=== PATIENT | female | born 1960 | race American Indian/Alaskan Native ===

== ENCOUNTER 2018-06-03 11:45 | Inpatient (IN) | payer MEDICARE ==
--- NOTE | 2018-06-03 11:54 | Emergency Department Report ---
Blank Doc - Documentation Documentation: This is a 58-year-old female that presents from Dr. Guzman office for SOB and left leg pain with swelling. Also has HTN. This initial assessment/diagnostic orders/clinical plan/treatment(s) is/are subject to change based on patient's health status, clinical progression and re- assessment by fellow clinical providers in the ED. Further treatment and workup at subsequent clinical providers discretion. Patient/guardians urged not to elope from the ED as their condition may be serious if not clinically assessed and managed. Initial orders include: 1- Patient sent to [facility] ED for further evaluation and treatment 2- labs 3- doppler US 4- EKG 5- CXR
--- NOTE | 2018-06-03 12:50 | XRay Report ---
CHEST TWO VIEWS: 06/03/18 12:25 CLINICAL: Dyspnea. COMPARISON: None FINDINGS: Cardiomegaly and central vascular congestion. Mildly prominent the basal interstitial opacities on the frontal view. No pulmonary consolidation. No pleural effusion. The upper lung mondragon are clear. The bones and soft tissues are normal. No tubes or lines. IMPRESSION: Mild CHF with nonspecific bibasal interstitial opacities.
--- NOTE | 2018-06-03 12:55 | Emergency Department Report ---
ED Shortness of Breath HPI - General Chief Complaint: Dyspnea/Respdistress Stated Complaint: ZENON Time Seen by Provider: 06/03/18 12:41 Source: patient Mode of arrival: Ambulatory Limitations: No Limitations - History of Present Illness Initial Comments: Patient is a 58-year-old female that presents emergency room for shortness of breath. Patient states she saw her operating room orderly today and her operating room orderly recommends admission for IV diuretics and CHF exacerbation. Patient is complaining of shortness of breath, dyspnea on exertion, orthopnea and bilateral lower extremity edema. Patient states her shortness of breath is worse with exertion and laying flat and better with rest. Patient denies chest pain. Patient states she only has pressure in her lower extremities no pain. Patient's states her legs are worsening. Patient denies fever and chills. MD Complaint: shortness of breath -: Sudden Severity: severe Consistency: constant Improves With: oxygen, rest, upright position Worsens With: lying flat, exertion Known History Of: congestive heart failure Treatments Prior to Arrival: none - Related Data Home Oxygen Therapy: No Home Medications Medication Instructions Recorded Confirmed Last Taken Furosemide [Lasix] 80 mg PO DAILY 06/03/18 06/03/18 Unknown Insulin Aspart [NovoLOG Flexpen] 5 units SQ AC 06/03/18 06/03/18 Unknown Insulin Glargine,Hum.rec.anlog 10 units SQ QHS 06/03/18 06/03/18 Unknown [Lantus] Allergies Allergy/AdvReac Type Severity Reaction Status Date / Time Penicillins AdvReac Unknown Unverified 02/04/18 12:54 ED Review of Systems ROS: Stated complaint: ZENON Other details as noted in HPI Constitutional: denies: chills, fever Eyes: denies: eye pain, eye discharge, vision change ENT: denies: ear pain, throat pain Respiratory: orthopnea, shortness of breath, SOB with exertion, SOB at rest. denies: cough, wheezing Cardiovascular: edema. denies: chest pain, palpitations Endocrine: no symptoms reported Gastrointestinal: denies: abdominal pain, nausea, diarrhea Genitourinary: denies: urgency, dysuria, discharge Musculoskeletal: denies: back pain, joint swelling, arthralgia Skin: denies: rash, lesions Neurological: denies: headache, weakness, paresthesias Psychiatric: denies: anxiety, depression Hematological/Lymphatic: denies: easy bleeding, easy bruising ED Past Medical Hx - Past Medical History Previous Medical History?: Yes Hx Congestive Heart Failure: Yes Hx Diabetes: Yes - Surgical History Past Surgical History?: Yes Additional Surgical History: C section - Family History Family history: hypertension - Social History Smoking Status: Never Smoker Substance Use Type: Alcohol - Medications Home Medications: Home Medications Medication Instructions Recorded Confirmed Last Taken Type Furosemide [Lasix] 80 mg PO DAILY 06/03/18 06/03/18 Unknown History Insulin Aspart [NovoLOG Flexpen] 5 units SQ AC 06/03/18 06/03/18 Unknown History Insulin Glargine,Hum.rec.anlog 10 units SQ QHS 06/03/18 06/03/18 Unknown History [Lantus] ED Physical Exam - General Limitations: No Limitations General appearance: alert, in no apparent distress - Head Head exam: Present: atraumatic, normocephalic - Eye Eye exam: Present: normal appearance - ENT ENT exam: Present: mucous membranes moist - Neck Neck exam: Present: normal inspection - Respiratory Respiratory exam: Present: normal lung sounds bilaterally. Absent: respiratory distress - Cardiovascular Cardiovascular Exam: Present: regular rate, normal rhythm. Absent: systolic murmur, diastolic murmur, rubs, gallop - GI/Abdominal GI/Abdominal exam: Present: soft, normal bowel sounds - Extremities Exam Extremities exam: Present: normal inspection - Back Exam Back exam: Present: normal inspection - Neurological Exam Neurological exam: Present: alert, oriented X3 - Psychiatric Psychiatric exam: Present: normal affect, normal mood - Skin Skin exam: Present: warm, dry, intact, normal color. Absent: rash ED Course Vital Signs 06/03/18 06/03/18 06/03/18 11:52 13:44 14:20 Temperature 97.9 F Pulse Rate 104 H 92 H Respiratory 20 18 16 Rate Blood Pressure 153/93 O2 Sat by Pulse 96 99 96 Oximetry - Reevaluation(s) Reevaluation #1: Discussed all results with patient. Patient agrees with plan of care and admission. Patient will be admitted to the hospitalist service. 06/03/18 14:12 - Consultations Consultation #1: Hospitalist consulted. Hospitalist to admit patient and assume care of patient. 06/03/18 14:01 Consultation #2: Cardiology consulted. Etiology to see the patient. Report given to Noemí Galdamez 06/03/18 14:33 ED Medical Decision Making - Lab Data Result diagrams: 06/03/18 Unknown 06/03/18 Unknown - EKG Data -: EKG Interpreted by Me EKG shows normal: sinus rhythm, axis, intervals, QRS complexes, ST-T waves Rate: normal - Radiology Data Radiology results: report reviewed, image reviewed CHEST TWO VIEWS: 06/03/18 12:25 CLINICAL: Dyspnea. COMPARISON: None FINDINGS: Cardiomegaly and central vascular congestion. Mildly prominent the basal interstitial opacities on the frontal view. No pulmonary consolidation. No pleural effusion. The upper lung mondragon are clear. The bones and soft tissues are normal. No tubes or lines. IMPRESSION: Mild CHF with nonspecific bibasal interstitial opacities. PROCEDURE: VL VENOUS DUPLEX LE LT TECHNIQUE: Ultrasound of the left leg venous system HISTORY: left leg pain and swelling COMPARISONS: 02/04/2018 FINDINGS: Normal compressibility, vascular patency, and augmentation are present diffusely throughout the visualized portion of the deep veins. No abnormal intraluminal echoes are visualized to suggest deep vein thrombus. Small nonspecific nodule in left inguinal region may be a prominent lymph node. IMPRESSION: No sonographic evidence of left leg DVT - Medical Decision Making History this 8-year-old female that presents to [facility] with shortness of breath, dyspnea on exertion and leg edema. Patient had ultrasound which is negative for DVT. Patient sent here by her operating room orderly for admission and IV diuresis. Patient given Lasix in the ER.. Patient was admitted to the hospitalist service. Patient agrees with plan of care. Patient's chest x-ray shows CHF changes. BNP is elevated labs are unremarkable Except for electrolyte imbalances. - Differential Diagnosis CHF. CHF exacerbation. Shortness of breath. THOMPSON. Edema Critical Care Time: Yes Critical care attestation.: If time is entered above; I have spent that time in minutes in the direct care of this critically ill patient, excluding procedure time. Critical Care Time: 35 minutes ED Disposition Clinical Impression: SOB (shortness of breath), THOMPSON (dyspnea on exertion), Lower extremity edema, Hyponatremia Edema Qualifiers: Edema type: unspecified Qualified Code(s): R60.9 - Edema, unspecified Acute exacerbation of CHF (congestive heart failure) Qualifiers: Heart failure type: systolic Qualified Code(s): I50.23 - Acute on chronic systolic (congestive) heart failure Disposition: DC-09 OP ADMIT IP TO THIS HOSP Is pt being admited?: Yes Does the pt Need Aspirin: No Condition: Critical Time of Disposition: 14:14
[2018-06-03] MEDS ORDERED: LASIX IV ONE (13:06)
[2018-06-03 13:29] LABS: Hematocrit 35.2 % (30.3-42.9); Hemoglobin 11.7 gm/dl (10.1-14.3); Mean Corpuscular HGB Conc 33 % (30-34); Mean Corpuscular Volume 83 fl (79-97); Platelet Count 288 K/mm3 (140-440); Red Blood Count 4.26 M/mm3 (3.65-5.03); Red Cell Distribution Width 17.4 % (13.2-15.2)
[2018-06-03 13:36] LABS: INR 1.05 (0.87-1.13)
[2018-06-03 13:37] LABS: Partial Thromboplastin Time 27.1 Sec. (24.2-36.6)
--- NOTE | 2018-06-03 13:38 | Vascular Lab Report ---
PROCEDURE: VL VENOUS DUPLEX LE LT TECHNIQUE: Ultrasound of the left leg venous system HISTORY: left leg pain and swelling COMPARISONS: 02/04/2018 FINDINGS: Normal compressibility, vascular patency, and augmentation are present diffusely throughout the visualized portion of the deep veins. No abnormal intraluminal echoes are visualized to suggest deep vein thrombus. Small nonspecific nodule in left inguinal region may be a prominent lymph node. IMPRESSION: No sonographic evidence of left leg DVT This document is electronically signed by Nash Purcell MD., June 03 2018 01:36:16 PM ET
[2018-06-03 13:45] LABS: Creatine Kinase MB 2.2 ng/mL (0.0-4.0)
[2018-06-03 13:47] LABS: Albumin 3.3 g/dL (3.9-5); BUN/Creatinine Ratio 20; Blood Urea Nitrogen 20 mg/dL (7-17); Calcium 8.6 mg/dL (8.4-10.2); Hemolysis Index 157
--- NOTE | 2018-06-03 14:06 | History and Physical Report ---
History of Present Illness Chief complaint: Im short of breath, and my legs are really swollen, and my heart doctor tole me to come get checked out History of present illness: 58 YO Female with Obesity, CHF, DM, Systolic CHF (EF 20%) presents to ED for evaluation. Pt stats that she has experienced shortness of breath over the past 1 week, with progressively worsening symptoms over the same time frame. Pt acknowledges Orthopnea/PND, Dypsnea on exertion, decreased exercise tolerance, lower extremity edema, dypsnea at rest. Pt was seen by her automobile or truck rental dispatcher and instructed to seek further care at [facility]. Pt transported to [facility] via private vehicle. Pt seen and evaluated in ED and found to have symptoms consistent with CHF Decompensation. Pt admitted to telemetry and initiated on CHF protocol. Cardiology consulted in ED. Pt denies fever, chills, CP, Palpitations, NVD, Trauma, Skin rash, Vertigo, unintentional weight loss, prolonged travel/immobility, unilateral leg swelling, individual/family history of DVT/PE/Blood Clotting Disorder. No previous inpatient admissions. No medication available for reconciliation at time of admission. Past History Past Medical History: diabetes, heart failure, other (Obesity) Past Surgical History: Social history: single. denies: smoking, alcohol abuse, prescription drug abuse Family history: diabetes, hypertension Medications and Allergies Allergies Allergy/AdvReac Type Severity Reaction Status Date / Time Penicillins AdvReac Unknown Unverified 02/04/18 12:54 Review of Systems Constitutional: weight gain, no weight loss, no fever, no chills Ears, nose, mouth and throat: no ear pain, no ear discharge, no tinnitis, no decreased hearing, no nose pain Breasts: no change in shape, no swelling, no mass Cardiovascular: orthopnea, edema, shortness of breath, dyspnea on exertion, paroxysmal nocturnal dyspnea, leg edema, decreased exercise tolerance, no chest pain, no palpitations, no rapid/irregular heart beat, no syncope Respiratory: no cough, no cough with sputum, no excessive sputum, no hemoptysis Gastrointestinal: no nausea, no vomiting, no diarrhea, no constipation Genitourinary Female: no pelvic pain, no flank pain, no menorrhagia, no dysuria, no urinary frequency, no urgency Rectal: no pain, no incontinence, no bleeding Musculoskeletal: no neck pain, no shooting arm pain, no arm numbness/tingling, no low back pain, no shooting leg pain Integumentary: no rash, no pruritis, no redness, no sores, no wounds Neurological: no paralysis, no weakness, no parathesias, no numbness, no tingling, no seizures Psychiatric: no anxiety, no memory loss, no change in sleep habits, no sleep disturbances, no insomnia, no hypersomnia, no change in appetite Endocrine: no cold intolerance, no heat intolerance, no polyphagia, no excessive thirst, no polydipsia, no polyuria Hematologic/Lymphatic: no easy bruising, no easy bleeding Allergic/Immunologic: no urticaria, no allergic rhinitis, no wheezing Exam - Constitutional Vitals: Temp Pulse Resp BP Pulse Ox 97.9 F 104 H 18 153/93 99 06/03/18 11:52 06/03/18 11:52 06/03/18 13:44 06/03/18 11:52 06/03/18 13:44 General appearance: Present: mild distress, obese - EENT Eyes: Present: PERRL ENT: hearing intact, clear oral mucosa - Neck Neck: Present: supple, normal ROM - Respiratory Respiratory effort: normal Respiratory: bilateral: diminished, rhonchi - Cardiovascular Heart Sounds: Present: S1 & S2. Absent: rub, click - Extremities Extremity abnormal: edema Peripheral Pulses: within normal limits - Abdominal General gastrointestinal: Present: soft, non-tender, non-distended, normal bowel sounds Female genitourinary: Present: normal - Integumentary Integumentary: Present: clear, warm, dry - Musculoskeletal Musculoskeletal: gait normal, strength equal bilaterally - Psychiatric Psychiatric: appropriate mood/affect, intact judgment & insight - Neurologic Neurologic: CNII-XII intact, moves all extremities Results - Labs CBC & Chem 7: 06/03/18 Unknown 06/03/18 Unknown Labs: Abnormal lab results 06/03/18 06/03/18 06/03/18 Range/Units Unknown Unknown Unknown WBC 3.4 L (4.5-11.0) K/mm3 RDW 17.4 H (13.2-15.2) % Sodium 132 L (137-145) mmol/L Chloride 93.2 L (98-107) mmol/L BUN 20 H (7-17) mg/dL Glucose 390 H (65-100) mg/dL Alkaline Phosphatase 190 H (35-129) units/L NT-Pro-B Natriuret Pep 7405 H (0-900) pg/mL Albumin 3.3 L (3.9-5) g/dL Assessment and Plan - Patient Problems (1) Acute exacerbation of CHF (congestive heart failure) Current Visit: Yes Status: Acute Qualifiers: Heart failure type: systolic Qualified Code(s): I50.23 - Acute on chronic systolic (congestive) heart failure Plan to address problem: CHF Protocol: Admit to Telemetry, Strict I/O, daily weight, diuresis, afterload reduction, Echo ordered in ED pending results, cardiology consulted in ED, BNP, CTA angio chest, pulse oximetry, chest x ray, thyroid panel. (2) Diabetes Current Visit: Yes Status: Acute Plan to address problem: ADA diet, insulin, accu check, (3) Obesity hypoventilation syndrome Current Visit: Yes Status: Acute Plan to address problem: supplemental oxygen, neblizer therpay, NIPPV as clinically indicated, increased physical activity, balanced diet at discharge. (4) DVT prophylaxis Current Visit: Yes Status: Acute Plan to address problem: SCD to BLE while in bed, prophylactic lovenox
[2018-06-03] MEDS ORDERED: ZOFRAN IV PRN (14:30)
[2018-06-03] MEDS ORDERED: TYLENOL PO PRN (14:30)
[2018-06-03] MEDS ORDERED: SODIUM CHLORIDE FLUSH SYRINGE 10 ML IV PRN (14:30)
[2018-06-03] MEDS ORDERED: PROVENTIL IH PRN (14:30)
[2018-06-03 14:42] LABS: Alanine Aminotransferase 23 units/L (7-56)
[2018-06-03 14:47] LABS: Eosinophils % (Manual) 0 % (0.0-4.3); Total Cells Counted 100
[2018-06-03 14:55] LABS: Anisocytosis 1+; Ovalocytes Rare; Platelet Estimate Consistent w Auto; Poikilocytosis 1+; Target Cells 1+
[2018-06-03 15:14] LABS: Bacteria,Urine 1+ /HPF (Negative); Bilirubin,Urine NEG (Negative); Blood,Urine NEG (Negative); Color,Urine Straw (Yellow); Urobilinogen,Urine < 2.0 mg/dL (<2.0)
--- NOTE | 2018-06-03 15:35 | Consultation ---
History of Present Illness Consult date: 06/03/18 Requesting physician: BUBBA RAMIRES Consult reason: congestive heart failure History of present illness: The pt is a 58-year-old female with past medical history of dilated CMP, HTN, DM, HF, who is normally followed by Dr. Fields office who presented today to our office for EP consultation with Dr. Guzman to discuss primary prevention of sudden cardiac . Today in the office the patient c/o of paroxysmal nocturnal dyspnea, orthopnea, SOB, THOMPSON and significant lower extremity edema for the past 2-3 weeks. Pt was referred to [facility] ED for further eval/management of acute on chronic systolic heart failure. Pt admits that she stopped taking prescription medications about 2 months ago because the medications made her feel "old", tired and sleepy. Pt denies any additional complaints. Echo done 01/2018 showed EF 20-25%, dilated LA, grade 3 diastolic dysfunction, RVSP 45-50mmHg, mild MR, AK and TR. Lexiscan MPI stress test done 10/2017 was negative for ischemia, EF 36%. Past History Past Medical History: diabetes, heart failure, hypertension, other (Obesity) Past Surgical History: Social history: single. denies: smoking, alcohol abuse, prescription drug abuse Family history: diabetes, hypertension Medications and Allergies Allergies Allergy/AdvReac Type Severity Reaction Status Date / Time Penicillins AdvReac Unknown Unverified 02/04/18 12:54 Home Medications Medication Instructions Recorded Confirmed Last Taken Type Furosemide [Lasix] 80 mg PO DAILY 06/03/18 06/03/18 Unknown History Insulin Aspart [NovoLOG Flexpen] 5 units SQ AC 06/03/18 06/03/18 Unknown History Insulin Glargine,Hum.rec.anlog 10 units SQ QHS 06/03/18 06/03/18 Unknown History [Lantus] Active Meds: Active Medications Acetaminophen (Tylenol) 650 mg PO Q4H PRN PRN Reason: Pain MILD(1-3)/Fever >100.5/GALLEGOS Albuterol (Proventil) 2.5 mg IH Q4HRT PRN PRN Reason: Shortness Of Breath Enoxaparin Sodium (Lovenox) 40 mg SUB-Q QDAY@2200 FLIP Furosemide (Lasix) 20 mg IV BID@0600,1800 FLIP Ondansetron HCl (Zofran) 4 mg IV Q8H PRN PRN Reason: Nausea And Vomiting Sodium Chloride (Sodium Chloride Flush Syringe 10 Ml) 10 ml IV BID FLIP Sodium Chloride (Sodium Chloride Flush Syringe 10 Ml) 10 ml IV PRN PRN PRN Reason: LINE FLUSH Review of Systems Constitutional: no fever, no chills, no sweats Ears, nose, mouth and throat: no ear pain, no nose pain, no sinus pressure, no sinus pain Cardiovascular: orthopnea, edema, shortness of breath, dyspnea on exertion, paroxysmal nocturnal dyspnea, high blood pressure, leg edema, decreased exercise tolerance, no chest pain, no palpitations, no rapid/irregular heart beat, no syncope, no lightheadedness Respiratory: shortness of breath, dyspnea on exertion, no cough, no congestion, no wheezing, no pain on inspiration Gastrointestinal: no abdominal pain, no nausea, no vomiting, no diarrhea, no constipation, no change in bowel habits Genitourinary Female: no pelvic pain, no flank pain, no dysuria, no urinary frequency, no urgency Musculoskeletal: no neck stiffness, no neck pain, no shooting arm pain, no arm numbness/tingling, no low back pain, no shooting leg pain Integumentary: no rash, no pruritis, no redness, no sores, no wounds Neurological: no head injury, no paralysis, no weakness, no parathesias, no numbness, no tingling, no seizures, no syncope Psychiatric: no anxiety Endocrine: no cold intolerance, no heat intolerance Hematologic/Lymphatic: no easy bruising, no easy bleeding Allergic/Immunologic: no urticaria, no wheezing Physical Examination Vital Signs Temp Pulse Resp BP Pulse Ox 97.9 F 104 H 20 153/93 96 06/03/18 11:52 06/03/18 11:52 06/03/18 11:52 06/03/18 11:52 06/03/18 11:52 General appearance: no acute distress HEENT: Positive: PERRL, Normocephaly, Mucus Membranes Moist Neck: Positive: neck supple, trachea midline Cardiac: Positive: Regular Rhythm, S1/S2 Lungs: Positive: Rales Neuro: Positive: Grossly Intact Abdomen: Negative: Tender Skin: Negative: Rash Musculoskeletal: No Pain Extremities: Present: +2 Edema (BLE) Results 06/03/18 Unknown 06/03/18 Unknown Cardiac Enzymes 06/03/18 Range/Units Unknown AST 33 (5-40) units/L CK-MB (CK-2) 2.2 (0.0-4.0) ng/mL Coagulation 06/03/18 Range/Units Unknown PT 14.3 (12.2-14.9) Sec. INR 1.05 (0.87-1.13) APTT 27.1 (24.2-36.6) Sec. CBC 06/03/18 Range/Units Unknown WBC 3.4 L (4.5-11.0) K/mm3 RBC 4.26 (3.65-5.03) M/mm3 Hgb 11.7 (10.1-14.3) gm/dl Hct 35.2 (30.3-42.9) % Plt Count 288 (140-440) K/mm3 Comprehensive Metabolic Panel 06/03/18 Range/Units Unknown Sodium 132 L (137-145) mmol/L Potassium 4.6 (3.6-5.0) mmol/L Chloride 93.2 L (98-107) mmol/L Carbon Dioxide 27 (22-30) mmol/L BUN 20 H (7-17) mg/dL Creatinine 1.0 (0.7-1.2) mg/dL Glucose 390 H (65-100) mg/dL Calcium 8.6 (8.4-10.2) mg/dL AST 33 (5-40) units/L ALT 23 (7-56) units/L Alkaline Phosphatase 190 H (35-129) units/L Total Protein 7.4 (6.3-8.2) g/dL Albumin 3.3 L (3.9-5) g/dL - Imaging and Cardiology Echo: report reviewed (01/2018 showed EF 20-25%, dilated LA, grade 3 diastolic dysfunction, RVSP 45-50mmHg, mild MR, AK and TR. ) EKG: report reviewed, image reviewed EKG interpretations - Telemetry EKG Rhythm: Sinus Rhythm - EKG Sinus rhythms and dysrhythmias: sinus rhythm Assessment and Plan DDimer elevated - await chest CTA. Resume home losartan and initiate IV diuretics. Consider resuming home Toprol if BP and HR permit and if pt is agreeable - Pt stopped taking prescription medications about 2 months ago because the medications made her feel "old", tired and sleepy. The patient has been seen in conjunction with Dr. Laughlin who agrees with the assessment and plan of care. - Patient Problems (1) Acute on chronic HFrEF (heart failure with reduced ejection fraction) Current Visit: Yes Status: Acute (2) Dilated cardiomyopathy Current Visit: Yes Status: Chronic (3) Elevated d-dimer Current Visit: Yes Status: Acute (4) HTN (hypertension) Current Visit: Yes Status: Chronic (5) Diabetes Current Visit: Yes Status: Chronic (6) Medical non-compliance Current Visit: Yes Status: Chronic
[2018-06-03 15:57] LABS: Free T4 (Free Thyroxine) 1.36 ng/dL (0.76-1.46)
--- NOTE | 2018-06-03 17:21 | Cat Scan Report ---
PROCEDURE: CT angiogram chest with contrast. TECHNIQUE: Computerized tomographic angiography of the chest was performed after the IV injection of iodinated nonionic contrast including image processing. The image data was postprocessed using 2-di mensional multiplanar reformatted (MPR) and 3-dimensional (MIP and/or volume rendered) techniques. Au tomated exposure control, adjustment of mA and/or kV according to patient size, or iterative reconstr uction dose optimization techniques were utilized. CT DOSE LENGTH PRODUCT: 486.97 mGycm HISTORY: Dyspnea. COMPARISONS: None. FINDINGS: The trachea and central bronchi appear normal. The right lung is clear. There is some groundglass opa [place] in the left lower lobe. This is nonspecific. It could represent atypical pulmonary edema or kaushal y pneumonia. There is a tiny left pleural effusion. The thoracic aorta has a normal caliber. The pulm onary arteries enhance normally. There is no evidence of pulmonary embolism. There are a few small no nspecific mediastinal lymph nodes. The heart size is mildly enlarged. The adrenal glands are not enla rged. The thoracic skeleton appears intact. IMPRESSION: No evidence of pulmonary embolism. Nonspecific groundglass opacity in the left lower lob e. Tiny left pleural effusion. This document is electronically signed by Ori Rico MD., June 03 2018 05:18:14 PM ET
[2018-06-03] MEDS ORDERED: LASIX IV SCH (18:00)
[2018-06-03] MEDS ORDERED: LASIX ONE (18:05)
[2018-06-03] MEDS: LASIX IV SCH (18:07)
[2018-06-03] MEDS: ALDACTONE PO SCH (22:55)
[2018-06-03] MEDS: LOVENOX SUB-Q SCH (22:55)
[2018-06-03] MEDS: SODIUM CHLORIDE FLUSH SYRINGE 10 ML IV SCH (22:55)
[2018-06-04] MEDS: LASIX IV SCH ×2 (06:19→17:10)
[2018-06-04] MEDS: HumuLIN R SUB-Q SCH ×4 (07:33→22:36)
[2018-06-04] MEDS: COZAAR PO SCH (10:23)
[2018-06-04] MEDS: ALDACTONE PO SCH (10:23)
[2018-06-04] MEDS: SODIUM CHLORIDE FLUSH SYRINGE 10 ML IV SCH ×2 (10:24→22:39)
--- NOTE | 2018-06-04 11:14 | Progress Note ---
Assessment and Plan DDimer elevated - chest CTA negative for PE. Initiate low dose coreg and titrate as tolerated. Cont all other present cardiac management. Assessment and plan reviewed with pt at bedside and she is agreeable. The patient has been seen in conjunction with Dr. Laughlin who agrees with the assessment and plan of care. - Patient Problems (1) Acute on chronic HFrEF (heart failure with reduced ejection fraction) Current Visit: Yes Status: Acute (2) Dilated cardiomyopathy Current Visit: Yes Status: Chronic (3) Elevated d-dimer Current Visit: Yes Status: Acute (4) HTN (hypertension) Current Visit: Yes Status: Chronic (5) Diabetes Current Visit: Yes Status: Chronic (6) Medical non-compliance Current Visit: Yes Status: Chronic (7) NSVT (nonsustained ventricular tachycardia) Current Visit: Yes Status: Acute Subjective Date of service: 06/04/18 Principal diagnosis: hf Interval history: pt resting in bed, states she is feeling better today. in SR on tele with 6 beat NSVT noted overnight, pt asymptomatic. Objective Last Vital Signs Temp 98.2 F 06/04/18 08:25 Pulse 93 H 06/04/18 08:24 Resp 18 06/04/18 08:24 BP 147/82 06/04/18 08:24 Pulse Ox 95 06/04/18 08:24 - Physical Examination General: No Apparent Distress HEENT: Positive: PERRL, Normocephaly, Mucus Membranes Moist Neck: Positive: neck supple, trachea midline Cardiac: Positive: Reg Rate and Rhythm, S1/S2 Lungs: Positive: Decreased Breath Sounds Neuro: Positive: Grossly Intact Abdomen: Negative: Tender Skin: Negative: Rash Musculoskeletal: No Pain Extremities: Present: +2 Edema (BLE) - Labs and Meds Cardiac Enzymes 06/03/18 Range/Units Unknown AST 33 (5-40) units/L CK-MB (CK-2) 2.2 (0.0-4.0) ng/mL Coagulation 06/03/18 Range/Units Unknown PT 14.3 (12.2-14.9) Sec. INR 1.05 (0.87-1.13) APTT 27.1 (24.2-36.6) Sec. CBC 06/03/18 Range/Units Unknown WBC 3.4 L (4.5-11.0) K/mm3 RBC 4.26 (3.65-5.03) M/mm3 Hgb 11.7 (10.1-14.3) gm/dl Hct 35.2 (30.3-42.9) % Plt Count 288 (140-440) K/mm3 Comprehensive Metabolic Panel 06/03/18 Range/Units Unknown Sodium 132 L (137-145) mmol/L Potassium 4.6 (3.6-5.0) mmol/L Chloride 93.2 L (98-107) mmol/L Carbon Dioxide 27 (22-30) mmol/L BUN 20 H (7-17) mg/dL Creatinine 1.0 (0.7-1.2) mg/dL Glucose 390 H (65-100) mg/dL Calcium 8.6 (8.4-10.2) mg/dL AST 33 (5-40) units/L ALT 23 (7-56) units/L Alkaline Phosphatase 190 H (35-129) units/L Total Protein 7.4 (6.3-8.2) g/dL Albumin 3.3 L (3.9-5) g/dL - Imaging and Cardiology EKG: report reviewed, image reviewed Echo: report reviewed (01/2018 showed EF 20-25%, dilated LA, grade 3 diastolic dysfunction, RVSP 45-50mmHg, mild MR, [place] and TR. ) - EKG Sinus rhythms and dysrhythmias: sinus rhythm
[2018-06-04] MEDS: COREG PO SCH ×2 (13:37→22:36)
--- NOTE | 2018-06-04 14:34 | Progress Note ---
Assessment and Plan Assessment and plan: Acute on chronic HFrEF. Echocardiogram from January 2018 revealed EF 20-25%, dilated LA, grade 3 diastolic dysfunction, RVSP 45-50mmHg, mild MR, [place] and TR. Continue Coreg, Lasix, Cozaar and spironolactone. Cardiology following. Follow serial chest x-ray. Lexiscan MPI stress test done 10/2017 was negative for ischemia, EF 36%. Dilated cardiomyopathy. Per cardiology. Elevated d-dimer. CT of chest negative for PE. Hypertension. Continue antihypertensive medications. Diabetes mellitus type 2. Continue Accu-Cheks and sliding scale regular insulin. NSVT. Patient likely will have AICD placed per cardiology. OHS/GAYLA. BiPAP as clinically indicated. History Interval history: No new issues overnight. Hospitalist Physical - Constitutional Vitals: Temp Pulse Resp BP Pulse Ox 98.1 F 100 H 18 149/82 96 06/04/18 11:00 06/04/18 12:15 06/04/18 12:15 06/04/18 12:15 06/04/18 12:54 General appearance: Present: no acute distress - EENT Eyes: Present: PERRL, EOM intact ENT: hearing intact, clear oral mucosa, dentition normal - Neck Neck: Present: supple, normal ROM - Respiratory Respiratory effort: normal Respiratory: bilateral: CTA - Cardiovascular Rhythm: regular Heart Sounds: Present: S1 & S2. Absent: gallop, rub - Extremities Extremities: no ischemia, No edema, Full ROM - Abdominal General gastrointestinal: soft, non-tender, non-distended, normal bowel sounds - Integumentary Integumentary: Present: clear, warm, dry - Neurologic Neurologic: CNII-XII intact, moves all extremities Results - Labs CBC & Chem 7: 06/03/18 Unknown 06/03/18 Unknown Labs: Laboratory Last Values WBC 3.4 K/mm3 (4.5-11.0) L 06/03/18 Unknown RBC 4.26 M/mm3 (3.65-5.03) 06/03/18 Unknown Hgb 11.7 gm/dl (10.1-14.3) 06/03/18 Unknown Hct 35.2 % (30.3-42.9) 06/03/18 Unknown MCV 83 fl (79-97) 06/03/18 Unknown MCH 28 pg (28-32) 06/03/18 Unknown MCHC 33 % (30-34) 06/03/18 Unknown RDW 17.4 % (13.2-15.2) H 06/03/18 Unknown Plt Count 288 K/mm3 (140-440) 06/03/18 Unknown Add Manual Diff Complete 06/03/18 Unknown Total Counted 100 06/03/18 Unknown Seg Neuts % (Manual) 59.0 % (40.0-70.0) 06/03/18 Unknown Band Neutrophils % 0 % 06/03/18 Unknown Lymphocytes % (Manual) 30.0 % (13.4-35.0) 06/03/18 Unknown Reactive Lymphs % (Man) 0 % 06/03/18 Unknown Monocytes % (Manual) 10.0 % (0.0-7.3) H 06/03/18 Unknown Eosinophils % (Manual) 0 % (0.0-4.3) 06/03/18 Unknown Basophils % (Manual) 1.0 % (0.0-1.8) 06/03/18 Unknown Metamyelocytes % 0 % 06/03/18 Unknown Myelocytes % 0 % 06/03/18 Unknown Promyelocytes % 0 % 06/03/18 Unknown Blast Cells % 0 % 06/03/18 Unknown Nucleated RBC % Not Reportable 06/03/18 Unknown Seg Neutrophils # Man 2.0 K/mm3 (1.8-7.7) 06/03/18 Unknown Band Neutrophils # 0.0 K/mm3 06/03/18 Unknown Lymphocytes # (Manual) 1.0 K/mm3 (1.2-5.4) L 06/03/18 Unknown Abs React Lymphs (Man) 0.0 K/mm3 06/03/18 Unknown Monocytes # (Manual) 0.3 K/mm3 (0.0-0.8) 06/03/18 Unknown Eosinophils # (Manual) 0.0 K/mm3 (0.0-0.4) 06/03/18 Unknown Basophils # (Manual) 0.0 K/mm3 (0.0-0.1) 06/03/18 Unknown Metamyelocytes # 0.0 K/mm3 06/03/18 Unknown Myelocytes # 0.0 K/mm3 06/03/18 Unknown Promyelocytes # 0.0 K/mm3 06/03/18 Unknown Blast Cells # 0.0 K/mm3 06/03/18 Unknown WBC Morphology Not Reportable 06/03/18 Unknown Hypersegmented Neuts Not Reportable 06/03/18 Unknown Hyposegmented Neuts Not Reportable 06/03/18 Unknown Hypogranular Neuts Not Reportable 06/03/18 Unknown Smudge Cells Not Reportable 06/03/18 Unknown Toxic Granulation Not Reportable 06/03/18 Unknown Toxic Vacuolation Not Reportable 06/03/18 Unknown Dohle Bodies Not Reportable 06/03/18 Unknown Pelger-Huet Anomaly Not Reportable 06/03/18 Unknown Beatriz Rods Not Reportable 06/03/18 Unknown Platelet Estimate Consistent w auto 06/03/18 Unknown Clumped Platelets Not Reportable 06/03/18 Unknown Plt Clumps, EDTA Not Reportable 06/03/18 Unknown Large Platelets Not Reportable 06/03/18 Unknown Giant Platelets Not Reportable 06/03/18 Unknown Platelet Satelliting Not Reportable 06/03/18 Unknown Plt Morphology Comment Not Reportable 06/03/18 Unknown RBC Morphology Not Reportable 06/03/18 Unknown Dimorphic RBCs Not Reportable 06/03/18 Unknown Polychromasia Not Reportable 06/03/18 Unknown Hypochromasia Not Reportable 06/03/18 Unknown Poikilocytosis 1+ 06/03/18 Unknown Anisocytosis 1+ 06/03/18 Unknown Microcytosis Not Reportable 06/03/18 Unknown Macrocytosis Not Reportable 06/03/18 Unknown Spherocytes Not Reportable 06/03/18 Unknown Pappenheimer Bodies Not Reportable 06/03/18 Unknown Sickle Cells Not Reportable 06/03/18 Unknown Target Cells 1+ 06/03/18 Unknown Tear Drop Cells Not Reportable 06/03/18 Unknown Ovalocytes Rare 06/03/18 Unknown Helmet Cells Not Reportable 06/03/18 Unknown Fernán[place] Bodies Not Reportable 06/03/18 Unknown [place] Rings Not Reportable 06/03/18 Unknown [place] Cells Not Reportable 06/03/18 Unknown Bite Cells Not Reportable 06/03/18 Unknown Crenated Cell Not Reportable 06/03/18 Unknown Elliptocytes Not Reportable 06/03/18 Unknown Acanthocytes (Spur) Not Reportable 06/03/18 Unknown Rouleaux Not Reportable 06/03/18 Unknown Hemoglobin C Crystals Not Reportable 06/03/18 Unknown Schistocytes Not Reportable 06/03/18 Unknown Malaria parasites Not Reportable 06/03/18 Unknown Patrick Bodies Not Reportable 06/03/18 Unknown Hem Pathologist Commnt No 06/03/18 Unknown PT 14.3 Sec. (12.2-14.9) 06/03/18 Unknown INR 1.05 (0.87-1.13) 06/03/18 Unknown APTT 27.1 Sec. (24.2-36.6) 06/03/18 Unknown D-Dimer 1025.63 ng/mlDDU (0-234) H 06/03/18 14:15 Sodium 132 mmol/L (137-145) L 06/03/18 Unknown Potassium 4.6 mmol/L (3.6-5.0) 06/03/18 Unknown Chloride 93.2 mmol/L (98-107) L 06/03/18 Unknown Carbon Dioxide 27 mmol/L (22-30) 06/03/18 Unknown Anion Gap 16 mmol/L 06/03/18 Unknown BUN 20 mg/dL (7-17) H 06/03/18 Unknown Creatinine 1.0 mg/dL (0.7-1.2) 06/03/18 Unknown Estimated GFR > 60 ml/min 06/03/18 Unknown BUN/Creatinine Ratio 20 % 06/03/18 Unknown Glucose 390 mg/dL (65-100) H 06/03/18 Unknown POC Glucose 97 (70-105) 06/04/18 11:41 Calcium 8.6 mg/dL (8.4-10.2) 06/03/18 Unknown Total Bilirubin 0.70 mg/dL (0.1-1.2) 06/03/18 Unknown AST 33 units/L (5-40) 06/03/18 Unknown ALT 23 units/L (7-56) 06/03/18 Unknown Alkaline Phosphatase 190 units/L (35-129) H 06/03/18 Unknown Total Creatine Kinase 76 units/L (30-135) 06/03/18 Unknown CK-MB (CK-2) 2.2 ng/mL (0.0-4.0) 06/03/18 Unknown CK-MB (CK-2) Rel Index 2.8 (0-4) 06/03/18 Unknown Troponin T < 0.010 ng/mL (0.00-0.029) 06/03/18 Unknown NT-Pro-B Natriuret Pep 7405 pg/mL (0-900) H 06/03/18 13:19 Total Protein 7.4 g/dL (6.3-8.2) 06/03/18 Unknown Albumin 3.3 g/dL (3.9-5) L 06/03/18 Unknown Albumin/Globulin Ratio 0.8 % 06/03/18 Unknown TSH 2.580 mlU/mL (0.270-4.200) 06/03/18 15:09 Free T4 1.36 ng/dL (0.76-1.46) 06/03/18 15:09 Urine Color Straw (Yellow) 06/03/18 14:05 Urine Turbidity Clear (Clear) 06/03/18 14:05 Urine pH 7.0 (5.0-7.0) 06/03/18 14:05 Ur Specific [place] 1.009 (1.003-1.030) 06/03/18 14:05 Urine Protein 100 mg/dl mg/dL (Negative) 06/03/18 14:05 Urine Glucose (UA) >=500 mg/dL (Negative) 06/03/18 14:05 Urine Ketones Neg mg/dL (Negative) 06/03/18 14:05 Urine Blood Neg (Negative) 06/03/18 14:05 Urine Nitrite Neg (Negative) 06/03/18 14:05 Urine Bilirubin Neg (Negative) 06/03/18 14:05 Urine Urobilinogen < 2.0 mg/dL (<2.0) 06/03/18 14:05 Ur Leukocyte Esterase Tr (Negative) 06/03/18 14:05 Urine WBC (Auto) 1.0 /HPF (0.0-6.0) 06/03/18 14:05 Urine RBC (Auto) 4.0 /HPF (0.0-6.0) 06/03/18 14:05 U Epithel Cells (Auto) 2.0 /HPF (0-13.0) 06/03/18 14:05 Urine Bacteria (Auto) 1+ /HPF (Negative) 06/03/18 14:05 Active Medications - Current Medications Current Medications: Generic Name Dose Route Start Last Admin Trade Name Freq PRN Reason Stop Dose Admin Acetaminophen 650 mg 06/03/18 14:30 Tylenol PO Q4H PRN Pain MILD(1-3)/Fever >100.5/GALLEGOS Albuterol 2.5 mg 06/03/18 14:30 Proventil IH Q4HRT PRN Shortness Of Breath Carvedilol 6.25 mg 06/04/18 12:00 06/04/18 13:37 Coreg PO 6.25 mg BID FLIP Administration Enoxaparin Sodium 40 mg 06/03/18 22:00 06/03/18 22:55 Lovenox SUB-Q 40 mg QDAY@2200 FLIP Administration Furosemide 40 mg 06/03/18 18:00 06/04/18 06:19 Lasix IV 40 mg BID@0600,1800 [facility] Administration Insulin Human Regular 0 units 06/04/18 07:30 06/04/18 12:41 Humulin R SUB-Q Not Given ACHS [facility] Protocol Losartan Potassium 25 mg 06/04/18 10:00 06/04/18 10:23 Cozaar PO 25 mg QDAY [facility] Administration Ondansetron HCl 4 mg 06/03/18 14:30 Zofran IV Q8H PRN Nausea And Vomiting Sodium Chloride 10 ml 06/03/18 22:00 06/04/18 10:24 Sodium Chloride Flush Syringe 10 Ml IV 10 ml BID FLIP Administration Sodium Chloride 10 ml 06/03/18 14:30 Sodium Chloride Flush Syringe 10 Ml IV PRN PRN LINE FLUSH Spironolactone 25 mg 06/05/18 10:00 Aldactone PO QDAY [facility]
[2018-06-04] MEDS: LOVENOX SUB-Q SCH (22:35)
[2018-06-05] MEDS: LANTUS SUB-Q SCH ×2 (00:46→22:42)
[2018-06-05 06:36] LABS: Hematocrit 39.3 % (30.3-42.9); Hemoglobin 12.9 gm/dl (10.1-14.3); Mean Corpuscular HGB Conc 33 % (30-34); Mean Corpuscular Volume 84 fl (79-97); Platelet Count 283 K/mm3 (140-440); Red Blood Count 4.69 M/mm3 (3.65-5.03); Red Cell Distribution Width 18.1 % (13.2-15.2)
[2018-06-05] MEDS: LASIX IV SCH (06:50)
[2018-06-05 07:04] LABS: Calcium 8.9 mg/dL (8.4-10.2)
[2018-06-05] MEDS ORDERED: D50W (25GM) Syringe IV ONE (07:11)
[2018-06-05] MEDS ORDERED: D50W (25GM) Syringe IV PRN (07:21)
[2018-06-05] MEDS ORDERED: COREG PO SCH (08:47)
[2018-06-05] MEDS: ALDACTONE PO SCH (10:21)
[2018-06-05] MEDS: COZAAR PO SCH (10:21)
[2018-06-05] MEDS: HumuLIN R SUB-Q SCH ×4 (10:21→22:42)
[2018-06-05] MEDS: COREG PO SCH ×2 (10:21→22:43)
--- NOTE | 2018-06-05 11:05 | Progress Note ---
Assessment and Plan SBP in 90s last night, reduce coreg dosage. Serum Cr increased, will decrease IV lasix to daily dosing and repeat BMP in AM. The patient has been seen in conjunction with Dr. Laughlin who agrees with the assessment and plan of care. - Patient Problems (1) Acute on chronic HFrEF (heart failure with reduced ejection fraction) Current Visit: Yes Status: Acute (2) Dilated cardiomyopathy Current Visit: Yes Status: Chronic (3) Elevated d-dimer Current Visit: Yes Status: Acute (4) HTN (hypertension) Current Visit: Yes Status: Chronic (5) Diabetes Current Visit: Yes Status: Chronic (6) Medical non-compliance Current Visit: Yes Status: Chronic (7) NSVT (nonsustained ventricular tachycardia) Current Visit: Yes Status: Acute Subjective Date of service: 06/05/18 Principal diagnosis: hf Interval history: pt resting in bed, slightly lethargic, had a bout of hypoglycemia this AM. in SR on tele with 3 beat NSVT noted overnight, pt asymptomatic. Objective Last Vital Signs Temp 98.0 F 06/05/18 08:35 Pulse 57 L 06/05/18 08:35 Resp 20 06/05/18 08:35 BP 118/62 06/05/18 08:35 Pulse Ox 95 06/05/18 08:35 - Physical Examination General: No Apparent Distress HEENT: Positive: PERRL, Normocephaly, Mucus Membranes Moist Neck: Positive: neck supple, trachea midline Cardiac: Positive: Reg Rate and Rhythm, S1/S2 Lungs: Positive: Decreased Breath Sounds Neuro: Positive: Grossly Intact Abdomen: Negative: Tender Skin: Negative: Rash Musculoskeletal: No Pain Extremities: Present: +2 Edema (BLE) - Labs and Meds CBC 06/05/18 Range/Units 05:59 WBC 3.2 L (4.5-11.0) K/mm3 RBC 4.69 (3.65-5.03) M/mm3 Hgb 12.9 (10.1-14.3) gm/dl Hct 39.3 (30.3-42.9) % Plt Count 283 (140-440) K/mm3 Comprehensive Metabolic Panel 06/05/18 06/05/18 Range/Units 05:59 07:35 Sodium 141 D (137-145) mmol/L Potassium 3.8 (3.6-5.0) mmol/L Chloride 97.3 L (98-107) mmol/L Carbon Dioxide 28 (22-30) mmol/L BUN 26 H (7-17) mg/dL Creatinine 1.5 H (0.7-1.2) mg/dL Glucose 28 L* 164 H (65-100) mg/dL Calcium 8.9 (8.4-10.2) mg/dL - Imaging and Cardiology EKG: report reviewed, image reviewed Echo: report reviewed (01/2018 showed EF 20-25%, dilated LA, grade 3 diastolic dysfunction, RVSP 45-50mmHg, mild MR, [place] and TR. ) - EKG Sinus rhythms and dysrhythmias: sinus rhythm
[2018-06-05 12:33] LABS: Total Cells Counted 100
[2018-06-05 12:34] LABS: Platelet Estimate Consistent w Auto; Target Cells Few
--- NOTE | 2018-06-05 12:35 | Progress Note ---
Assessment and Plan Assessment and plan: Acute on chronic HFrEF. Echocardiogram from January 2018 revealed EF 20-25%, dilated LA, grade 3 diastolic dysfunction, RVSP 45-50mmHg, mild MR, [place] and TR. Continue Coreg, Lasix, Cozaar and spironolactone. Lasix decreased due to increasing creatinine. Beta gaby decreased due to hypotension. Cardiology following. Follow serial chest x-ray. Lexiscan MPI stress test done 10/2017 was negative for ischemia, EF 36%. Dilated cardiomyopathy. Per cardiology. Elevated d-dimer. CT of chest negative for PE. Hypertension. Continue antihypertensive medications. Diabetes mellitus type 2. Continue Accu-Cheks and sliding scale regular insulin. NSVT. Patient likely will have AICD placed per cardiology. OHS/GAYLA. BiPAP as clinically indicated. History Interval history: No new issues overnight. Hospitalist Physical - Constitutional Vitals: Temp Pulse Resp BP Pulse Ox 97.9 F 69 20 152/83 99 06/05/18 11:16 06/05/18 11:16 06/05/18 11:16 06/05/18 11:16 06/05/18 11:16 General appearance: Present: no acute distress - EENT Eyes: Present: PERRL, EOM intact ENT: hearing intact, clear oral mucosa, dentition normal - Neck Neck: Present: supple, normal ROM - Respiratory Respiratory effort: normal Respiratory: bilateral: CTA - Cardiovascular Rhythm: regular Heart Sounds: Present: S1 & S2. Absent: gallop, rub - Extremities Extremities: no ischemia, No edema, Full ROM - Abdominal General gastrointestinal: soft, non-tender, non-distended, normal bowel sounds - Integumentary Integumentary: Present: clear, warm, dry - Neurologic Neurologic: CNII-XII intact, moves all extremities Results - Labs CBC & Chem 7: 06/05/18 05:59 06/05/18 07:35 Labs: Laboratory Last Values WBC 3.2 K/mm3 (4.5-11.0) L 06/05/18 05:59 RBC 4.69 M/mm3 (3.65-5.03) 06/05/18 05:59 Hgb 12.9 gm/dl (10.1-14.3) 06/05/18 05:59 Hct 39.3 % (30.3-42.9) 06/05/18 05:59 MCV 84 fl (79-97) 06/05/18 05:59 MCH 28 pg (28-32) 06/05/18 05:59 MCHC 33 % (30-34) 06/05/18 05:59 RDW 18.1 % (13.2-15.2) H 06/05/18 05:59 Plt Count 283 K/mm3 (140-440) 06/05/18 05:59 [place] % (Auto) Caf[employer] 06/05/18 05:59 Add Manual Diff Complete 06/03/18 Unknown Total Counted 100 06/03/18 Unknown Seg Neuts % (Manual) 59.0 % (40.0-70.0) 06/03/18 Unknown Band Neutrophils % 0 % 06/03/18 Unknown Lymphocytes % (Manual) 30.0 % (13.4-35.0) 06/03/18 Unknown Reactive Lymphs % (Man) 0 % 06/03/18 Unknown Monocytes % (Manual) 10.0 % (0.0-7.3) H 06/03/18 Unknown Eosinophils % (Manual) 0 % (0.0-4.3) 06/03/18 Unknown Basophils % (Manual) 1.0 % (0.0-1.8) 06/03/18 Unknown Metamyelocytes % 0 % 06/03/18 Unknown Myelocytes % 0 % 06/03/18 Unknown Promyelocytes % 0 % 06/03/18 Unknown Blast Cells % 0 % 06/03/18 Unknown Nucleated RBC % Not Reportable 06/03/18 Unknown Seg Neutrophils # Man 2.0 K/mm3 (1.8-7.7) 06/03/18 Unknown Band Neutrophils # 0.0 K/mm3 06/03/18 Unknown Lymphocytes # (Manual) 1.0 K/mm3 (1.2-5.4) L 06/03/18 Unknown Abs React Lymphs (Man) 0.0 K/mm3 06/03/18 Unknown Monocytes # (Manual) 0.3 K/mm3 (0.0-0.8) 06/03/18 Unknown Eosinophils # (Manual) 0.0 K/mm3 (0.0-0.4) 06/03/18 Unknown Basophils # (Manual) 0.0 K/mm3 (0.0-0.1) 06/03/18 Unknown Metamyelocytes # 0.0 K/mm3 06/03/18 Unknown Myelocytes # 0.0 K/mm3 06/03/18 Unknown Promyelocytes # 0.0 K/mm3 06/03/18 Unknown Blast Cells # 0.0 K/mm3 06/03/18 Unknown WBC Morphology Not Reportable 06/03/18 Unknown Hypersegmented Neuts Not Reportable 06/03/18 Unknown Hyposegmented Neuts Not Reportable 06/03/18 Unknown Hypogranular Neuts Not Reportable 06/03/18 Unknown Smudge Cells Not Reportable 06/03/18 Unknown Toxic Granulation Not Reportable 06/03/18 Unknown Toxic Vacuolation Not Reportable 06/03/18 Unknown Dohle Bodies Not Reportable 06/03/18 Unknown Pelger-Huet Anomaly Not Reportable 06/03/18 Unknown Beatriz Rods Not Reportable 06/03/18 Unknown Platelet Estimate Consistent w auto 06/03/18 Unknown Clumped Platelets Not Reportable 06/03/18 Unknown Plt Clumps, EDTA Not Reportable 06/03/18 Unknown Large Platelets Not Reportable 06/03/18 Unknown Giant Platelets Not Reportable 06/03/18 Unknown Platelet Satelliting Not Reportable 06/03/18 Unknown Plt Morphology Comment Not Reportable 06/03/18 Unknown RBC Morphology Not Reportable 06/03/18 Unknown Dimorphic RBCs Not Reportable 06/03/18 Unknown Polychromasia Not Reportable 06/03/18 Unknown Hypochromasia Not Reportable 06/03/18 Unknown Poikilocytosis 1+ 06/03/18 Unknown Anisocytosis 1+ 06/03/18 Unknown Microcytosis Not Reportable 06/03/18 Unknown Macrocytosis Not Reportable 06/03/18 Unknown Spherocytes Not Reportable 06/03/18 Unknown Pappenheimer Bodies Not Reportable 06/03/18 Unknown Sickle Cells Not Reportable 06/03/18 Unknown Target Cells 1+ 06/03/18 Unknown Tear Drop Cells Not Reportable 06/03/18 Unknown Ovalocytes Rare 06/03/18 Unknown Helmet Cells Not Reportable 06/03/18 Unknown Fernán[place] Bodies Not Reportable 06/03/18 Unknown [place] Rings Not Reportable 06/03/18 Unknown [place] Cells Not Reportable 06/03/18 Unknown Bite Cells Not Reportable 06/03/18 Unknown Crenated Cell Not Reportable 06/03/18 Unknown Elliptocytes Not Reportable 06/03/18 Unknown Acanthocytes (Spur) Not Reportable 06/03/18 Unknown Rouleaux Not Reportable 06/03/18 Unknown Hemoglobin C Crystals Not Reportable 06/03/18 Unknown Schistocytes Not Reportable 06/03/18 Unknown Malaria parasites Not Reportable 06/03/18 Unknown Patrick Bodies Not Reportable 06/03/18 Unknown Hem Pathologist Commnt No 06/03/18 Unknown PT 14.3 Sec. (12.2-14.9) 06/03/18 Unknown INR 1.05 (0.87-1.13) 06/03/18 Unknown APTT 27.1 Sec. (24.2-36.6) 06/03/18 Unknown D-Dimer 1025.63 ng/mlDDU (0-234) H 06/03/18 14:15 Sodium 141 mmol/L (137-145) D 06/05/18 05:59 Potassium 3.8 mmol/L (3.6-5.0) 06/05/18 05:59 Chloride 97.3 mmol/L (98-107) L 06/05/18 05:59 Carbon Dioxide 28 mmol/L (22-30) 06/05/18 05:59 Anion Gap 20 mmol/L 06/05/18 05:59 BUN 26 mg/dL (7-17) H 06/05/18 05:59 Creatinine 1.5 mg/dL (0.7-1.2) H 06/05/18 05:59 Estimated GFR 43 ml/min 06/05/18 05:59 BUN/Creatinine Ratio 17 % 06/05/18 05:59 Glucose 164 mg/dL (65-100) H 06/05/18 07:35 POC Glucose 248 (70-105) H 06/05/18 11:00 Calcium 8.9 mg/dL (8.4-10.2) 06/05/18 05:59 Magnesium 1.90 mg/dL (1.7-2.3) 06/05/18 05:59 Total Bilirubin 0.70 mg/dL (0.1-1.2) 06/03/18 Unknown AST 33 units/L (5-40) 06/03/18 Unknown ALT 23 units/L (7-56) 06/03/18 Unknown Alkaline Phosphatase 190 units/L (35-129) H 06/03/18 Unknown Total Creatine Kinase 76 units/L (30-135) 06/03/18 Unknown CK-MB (CK-2) 2.2 ng/mL (0.0-4.0) 06/03/18 Unknown CK-MB (CK-2) Rel Index 2.8 (0-4) 06/03/18 Unknown Troponin T < 0.010 ng/mL (0.00-0.029) 06/03/18 Unknown NT-Pro-B Natriuret Pep 7405 pg/mL (0-900) H 06/03/18 13:19 Total Protein 7.4 g/dL (6.3-8.2) 06/03/18 Unknown Albumin 3.3 g/dL (3.9-5) L 06/03/18 Unknown Albumin/Globulin Ratio 0.8 % 06/03/18 Unknown TSH 2.580 mlU/mL (0.270-4.200) 06/03/18 15:09 Free T4 1.36 ng/dL (0.76-1.46) 06/03/18 15:09 Urine Color Straw (Yellow) 06/03/18 14:05 Urine Turbidity Clear (Clear) 06/03/18 14:05 Urine pH 7.0 (5.0-7.0) 06/03/18 14:05 Ur Specific [place] 1.009 (1.003-1.030) 06/03/18 14:05 Urine Protein 100 mg/dl mg/dL (Negative) 06/03/18 14:05 Urine Glucose (UA) >=500 mg/dL (Negative) 06/03/18 14:05 Urine Ketones Neg mg/dL (Negative) 06/03/18 14:05 Urine Blood Neg (Negative) 06/03/18 14:05 Urine Nitrite Neg (Negative) 06/03/18 14:05 Urine Bilirubin Neg (Negative) 06/03/18 14:05 Urine Urobilinogen < 2.0 mg/dL (<2.0) 06/03/18 14:05 Ur Leukocyte Esterase Tr (Negative) 06/03/18 14:05 Urine WBC (Auto) 1.0 /HPF (0.0-6.0) 06/03/18 14:05 Urine RBC (Auto) 4.0 /HPF (0.0-6.0) 06/03/18 14:05 U Epithel Cells (Auto) 2.0 /HPF (0-13.0) 06/03/18 14:05 Urine Bacteria (Auto) 1+ /HPF (Negative) 06/03/18 14:05 Active Medications - Current Medications Current Medications: Generic Name Dose Route Start Last Admin Trade Name Freq PRN Reason Stop Dose Admin Acetaminophen 650 mg 06/03/18 14:30 Tylenol PO Q4H PRN Pain MILD(1-3)/Fever >100.5/GALLEGOS Albuterol 2.5 mg 06/03/18 14:30 Proventil IH Q4HRT PRN Shortness Of Breath Carvedilol 3.125 mg 06/05/18 10:00 06/05/18 10:21 Coreg PO 3.125 mg BID FLIP Administration Dextrose 50 ml 06/05/18 07:21 D50w (25gm) Syringe IV PRN PRN Hypoglycemia Enoxaparin Sodium 40 mg 06/03/18 22:00 06/04/18 22:35 Lovenox SUB-Q 40 mg QDAY@2200 FLIP Administration Furosemide 40 mg 06/06/18 10:00 Lasix IV DAILY FLIP Insulin Glargine 10 units 06/04/18 22:00 06/05/18 00:46 Lantus SUB-Q 10 units QHS FLIP Administration Insulin Human Regular 0 units 06/04/18 07:30 06/05/18 10:21 Humulin R SUB-Q Not Given ACHS [facility] Protocol Losartan Potassium 25 mg 06/04/18 10:00 06/05/18 10:21 Cozaar PO 25 mg QDAY FLIP Administration Ondansetron HCl 4 mg 06/03/18 14:30 Zofran IV Q8H PRN Nausea And Vomiting Sodium Chloride 10 ml 06/03/18 22:00 06/04/18 22:39 Sodium Chloride Flush Syringe 10 Ml IV 10 ml BID FLIP Administration Sodium Chloride 10 ml 06/03/18 14:30 Sodium Chloride Flush Syringe 10 Ml IV PRN PRN LINE FLUSH Spironolactone 25 mg 06/05/18 10:00 06/05/18 10:21 Aldactone PO 25 mg QDAY FLIP Administration
[2018-06-05] MEDS: SODIUM CHLORIDE FLUSH SYRINGE 10 ML IV SCH ×2 (14:35→22:43)
[2018-06-05] MEDS ORDERED: LANTUS SUB-Q SCH (22:00)
[2018-06-05] MEDS: LOVENOX SUB-Q SCH (22:41)
[2018-06-06] MEDS: COZAAR PO SCH (09:47)
[2018-06-06] MEDS: COREG PO SCH ×2 (09:47→21:56)
[2018-06-06] MEDS: ALDACTONE PO SCH (09:47)
[2018-06-06] MEDS ORDERED: LASIX IV SCH (10:00)
[2018-06-06] MEDS: SODIUM CHLORIDE FLUSH SYRINGE 10 ML IV SCH ×2 (10:01→21:56)
[2018-06-06] MEDS: HumuLIN R SUB-Q SCH ×4 (10:01→21:55)
--- NOTE | 2018-06-06 11:54 | Progress Note ---
Assessment and Plan Assessment and plan: Acute on chronic HFrEF. Echocardiogram from January 2018 revealed EF 20-25%, dilated LA, grade 3 diastolic dysfunction, RVSP 45-50mmHg, mild MR, [place] and TR. Continue Coreg, Lasix, Cozaar and spironolactone. Lasix decreased due to increasing creatinine. Beta gaby decreased due to hypotension. Cardiology following. Follow serial chest x-ray. Lexiscan MPI stress test done 10/2017 was negative for ischemia, EF 36%. Acute kidney injury. Etiology secondary to vasomotor nephropathy/dehydration. Continue diuretics per cardiology. Dilated cardiomyopathy. Per cardiology. Elevated d-dimer. CT of chest negative for PE. Hypertension. Continue antihypertensive medications. Diabetes mellitus type 2. Continue Accu-Cheks and sliding scale regular insulin. NSVT. Patient likely will have AICD placed per cardiology. OHS/GAYLA. BiPAP as clinically indicated. History Interval history: No new issues overnight. Hospitalist Physical - Constitutional Vitals: Temp Pulse Resp BP Pulse Ox 97.9 F 82 18 120/65 97 06/06/18 10:56 06/06/18 10:56 06/06/18 10:56 06/06/18 10:56 06/06/18 10:56 General appearance: Present: no acute distress - EENT Eyes: Present: PERRL, EOM intact ENT: hearing intact, clear oral mucosa, dentition normal - Neck Neck: Present: supple, normal ROM - Respiratory Respiratory effort: normal Respiratory: bilateral: CTA - Cardiovascular Rhythm: regular Heart Sounds: Present: S1 & S2. Absent: gallop, rub - Extremities Extremities: no ischemia, No edema, Full ROM - Abdominal General gastrointestinal: soft, non-tender, non-distended, normal bowel sounds - Integumentary Integumentary: Present: clear, warm, dry - Neurologic Neurologic: CNII-XII intact, moves all extremities Results - Labs CBC & Chem 7: 06/05/18 05:59 06/06/18 05:52 Labs: Laboratory Last Values WBC 3.2 K/mm3 (4.5-11.0) L 06/05/18 05:59 RBC 4.69 M/mm3 (3.65-5.03) 06/05/18 05:59 Hgb 12.9 gm/dl (10.1-14.3) 06/05/18 05:59 Hct 39.3 % (30.3-42.9) 06/05/18 05:59 MCV 84 fl (79-97) 06/05/18 05:59 MCH 28 pg (28-32) 06/05/18 05:59 MCHC 33 % (30-34) 06/05/18 05:59 RDW 18.1 % (13.2-15.2) H 06/05/18 05:59 Plt Count 283 K/mm3 (140-440) 06/05/18 05:59 [place] % (Auto) Office Technology Professor 06/05/18 05:59 Add Manual Diff Complete 06/05/18 05:59 Total Counted 100 06/05/18 05:59 Seg Neuts % (Manual) 39.0 % (40.0-70.0) L 06/05/18 05:59 Band Neutrophils % 0 % 06/05/18 05:59 Lymphocytes % (Manual) 36.0 % (13.4-35.0) H 06/05/18 05:59 Reactive Lymphs % (Man) 0 % 06/05/18 05:59 Monocytes % (Manual) 23.0 % (0.0-7.3) H 06/05/18 05:59 Eosinophils % (Manual) 1.0 % (0.0-4.3) 06/05/18 05:59 Basophils % (Manual) 1.0 % (0.0-1.8) 06/05/18 05:59 Metamyelocytes % 0 % 06/05/18 05:59 Myelocytes % 0 % 06/05/18 05:59 Promyelocytes % 0 % 06/05/18 05:59 Blast Cells % 0 % 06/05/18 05:59 Nucleated RBC % Not Reportable 06/05/18 05:59 Seg Neutrophils # Man 1.2 K/mm3 (1.8-7.7) L 06/05/18 05:59 Band Neutrophils # 0.0 K/mm3 06/05/18 05:59 Lymphocytes # (Manual) 1.2 K/mm3 (1.2-5.4) 06/05/18 05:59 Abs React Lymphs (Man) 0.0 K/mm3 06/05/18 05:59 Monocytes # (Manual) 0.7 K/mm3 (0.0-0.8) 06/05/18 05:59 Eosinophils # (Manual) 0.0 K/mm3 (0.0-0.4) 06/05/18 05:59 Basophils # (Manual) 0.0 K/mm3 (0.0-0.1) 06/05/18 05:59 Metamyelocytes # 0.0 K/mm3 06/05/18 05:59 Myelocytes # 0.0 K/mm3 06/05/18 05:59 Promyelocytes # 0.0 K/mm3 06/05/18 05:59 Blast Cells # 0.0 K/mm3 06/05/18 05:59 WBC Morphology Not Reportable 06/05/18 05:59 Hypersegmented Neuts Not Reportable 06/05/18 05:59 Hyposegmented Neuts Not Reportable 06/05/18 05:59 Hypogranular Neuts Not Reportable 06/05/18 05:59 Smudge Cells Not Reportable 06/05/18 05:59 Toxic Granulation Not Reportable 06/05/18 05:59 Toxic Vacuolation Not Reportable 06/05/18 05:59 Dohle Bodies Not Reportable 06/05/18 05:59 Pelger-Huet Anomaly Not Reportable 06/05/18 05:59 Beatriz Rods Not Reportable 06/05/18 05:59 Platelet Estimate Consistent w auto 06/05/18 05:59 Clumped Platelets Not Reportable 06/05/18 05:59 Plt Clumps, EDTA Not Reportable 06/05/18 05:59 Large Platelets Not Reportable 06/05/18 05:59 Giant Platelets Not Reportable 06/05/18 05:59 Platelet Satelliting Not Reportable 06/05/18 05:59 Plt Morphology Comment Not Reportable 06/05/18 05:59 RBC Morphology Not Reportable 06/05/18 05:59 Dimorphic RBCs Not Reportable 06/05/18 05:59 Polychromasia Not Reportable 06/05/18 05:59 Hypochromasia Not Reportable 06/05/18 05:59 Poikilocytosis Not Reportable 06/05/18 05:59 Anisocytosis Not Reportable 06/05/18 05:59 Microcytosis Not Reportable 06/05/18 05:59 Macrocytosis Not Reportable 06/05/18 05:59 Spherocytes Not Reportable 06/05/18 05:59 Pappenheimer Bodies Not Reportable 06/05/18 05:59 Sickle Cells Not Reportable 06/05/18 05:59 Target Cells Few 06/05/18 05:59 Tear Drop Cells Not Reportable 06/05/18 05:59 Ovalocytes Not Reportable 06/05/18 05:59 Helmet Cells Not Reportable 06/05/18 05:59 [place] Bodies Not Reportable 06/05/18 05:59 [place] Rings Not Reportable 06/05/18 05:59 [place] Cells Not Reportable 06/05/18 05:59 Bite Cells Not Reportable 06/05/18 05:59 Crenated Cell Not Reportable 06/05/18 05:59 Elliptocytes Not Reportable 06/05/18 05:59 Acanthocytes (Spur) Not Reportable 06/05/18 05:59 Rouleaux Not Reportable 06/05/18 05:59 Hemoglobin C Crystals Not Reportable 06/05/18 05:59 Schistocytes Not Reportable 06/05/18 05:59 Malaria parasites Not Reportable 06/05/18 05:59 Patrick Bodies Not Reportable 06/05/18 05:59 Hem Pathologist Commnt No 06/05/18 05:59 PT 14.3 Sec. (12.2-14.9) 06/03/18 Unknown INR 1.05 (0.87-1.13) 06/03/18 Unknown APTT 27.1 Sec. (24.2-36.6) 06/03/18 Unknown D-Dimer 1025.63 ng/mlDDU (0-234) H 06/03/18 14:15 Sodium 137 mmol/L (137-145) 06/06/18 05:52 Potassium 3.9 mmol/L (3.6-5.0) 06/06/18 05:52 Chloride 94.8 mmol/L (98-107) L 06/06/18 05:52 Carbon Dioxide 30 mmol/L (22-30) 06/06/18 05:52 Anion Gap 16 mmol/L 06/06/18 05:52 BUN 31 mg/dL (7-17) H 06/06/18 05:52 Creatinine 1.8 mg/dL (0.7-1.2) H 06/06/18 05:52 Estimated GFR 35 ml/min 06/06/18 05:52 BUN/Creatinine Ratio 17 % 06/06/18 05:52 Glucose 356 mg/dL (65-100) H 06/06/18 05:52 POC Glucose 276 (70-105) H 06/06/18 07:38 Calcium 8.0 mg/dL (8.4-10.2) L 06/06/18 05:52 Magnesium 1.90 mg/dL (1.7-2.3) 06/05/18 05:59 Total Bilirubin 0.70 mg/dL (0.1-1.2) 06/03/18 Unknown AST 33 units/L (5-40) 06/03/18 Unknown ALT 23 units/L (7-56) 06/03/18 Unknown Alkaline Phosphatase 190 units/L (35-129) H 06/03/18 Unknown Total Creatine Kinase 76 units/L (30-135) 06/03/18 Unknown CK-MB (CK-2) 2.2 ng/mL (0.0-4.0) 06/03/18 Unknown CK-MB (CK-2) Rel Index 2.8 (0-4) 06/03/18 Unknown Troponin T < 0.010 ng/mL (0.00-0.029) 06/03/18 Unknown NT-Pro-B Natriuret Pep 7405 pg/mL (0-900) H 06/03/18 13:19 Total Protein 7.4 g/dL (6.3-8.2) 06/03/18 Unknown Albumin 3.3 g/dL (3.9-5) L 06/03/18 Unknown Albumin/Globulin Ratio 0.8 % 06/03/18 Unknown TSH 2.580 mlU/mL (0.270-4.200) 06/03/18 15:09 Free T4 1.36 ng/dL (0.76-1.46) 06/03/18 15:09 Urine Color Straw (Yellow) 06/03/18 14:05 Urine Turbidity Clear (Clear) 06/03/18 14:05 Urine pH 7.0 (5.0-7.0) 06/03/18 14:05 Ur Specific [place] 1.009 (1.003-1.030) 06/03/18 14:05 Urine Protein 100 mg/dl mg/dL (Negative) 06/03/18 14:05 Urine Glucose (UA) >=500 mg/dL (Negative) 06/03/18 14:05 Urine Ketones Neg mg/dL (Negative) 06/03/18 14:05 Urine Blood Neg (Negative) 06/03/18 14:05 Urine Nitrite Neg (Negative) 06/03/18 14:05 Urine Bilirubin Neg (Negative) 06/03/18 14:05 Urine Urobilinogen < 2.0 mg/dL (<2.0) 06/03/18 14:05 Ur Leukocyte Esterase Tr (Negative) 06/03/18 14:05 Urine WBC (Auto) 1.0 /HPF (0.0-6.0) 06/03/18 14:05 Urine RBC (Auto) 4.0 /HPF (0.0-6.0) 06/03/18 14:05 U Epithel Cells (Auto) 2.0 /HPF (0-13.0) 06/03/18 14:05 Urine Bacteria (Auto) 1+ /HPF (Negative) 06/03/18 14:05 Active Medications - Current Medications Current Medications: Generic Name Dose Route Start Last Admin Trade Name Freq PRN Reason Stop Dose Admin Acetaminophen 650 mg 06/03/18 14:30 Tylenol PO Q4H PRN Pain MILD(1-3)/Fever >100.5/GALLEGOS Albuterol 2.5 mg 06/03/18 14:30 Proventil IH Q4HRT PRN Shortness Of Breath Carvedilol 3.125 mg 06/05/18 10:00 06/06/18 09:47 Coreg PO 3.125 mg BID FLIP Administration Dextrose 50 ml 06/05/18 07:21 D50w (25gm) Syringe IV PRN PRN Hypoglycemia Enoxaparin Sodium 40 mg 06/03/18 22:00 06/05/18 22:41 Lovenox SUB-Q 40 mg QDAY@2200 FLIP Administration Furosemide 40 mg 06/06/18 10:00 06/06/18 09:48 Lasix IV 40 mg DAILY FLIP Administration Insulin Glargine 10 units 06/04/18 22:00 06/05/18 22:42 Lantus SUB-Q 10 units QHS FLIP Administration Insulin Human Regular 0 units 06/04/18 07:30 06/06/18 10:01 Humulin R SUB-Q 4 units ACHS FLIP Administration Protocol Losartan Potassium 25 mg 06/04/18 10:00 06/06/18 09:47 Cozaar PO 25 mg QDAY FLIP Administration Ondansetron HCl 4 mg 06/03/18 14:30 Zofran IV Q8H PRN Nausea And Vomiting Sodium Chloride 10 ml 06/03/18 22:00 06/06/18 10:01 Sodium Chloride Flush Syringe 10 Ml IV 10 ml BID FLIP Administration Sodium Chloride 10 ml 06/03/18 14:30 Sodium Chloride Flush Syringe 10 Ml IV PRN PRN LINE FLUSH Spironolactone 25 mg 06/05/18 10:00 06/06/18 09:47 Aldactone PO 25 mg QDAY FLIP Administration
[2018-06-06] MEDS ORDERED: LANTUS SUB-Q SCH (11:55)
--- NOTE | 2018-06-06 12:54 | Progress Note ---
Assessment and Plan Patient has lost over 5 pounds shortness of breath has improved renal insufficiency is mildly worsen stop IV Lasix to by mouth Lasix and encourage patient to ambulate and increase Coreg as heart rate is in the 70s and is stable and discharge in the morning if stable discussed about importance of compliance with medication and diet - Patient Problems (1) Respiratory failure Current Visit: Yes Status: Acute Qualifiers: Chronicity: acute Respiratory failure complication: hypoxia Qualified Code(s): J96.01 - Acute respiratory failure with hypoxia (2) Acute on chronic HFrEF (heart failure with reduced ejection fraction) Current Visit: Yes Status: Acute (3) NSVT (nonsustained ventricular tachycardia) Current Visit: Yes Status: Acute (4) SOB (shortness of breath) Current Visit: Yes Status: Chronic (5) Dilated cardiomyopathy Current Visit: Yes Status: Chronic (6) HTN (hypertension) Current Visit: Yes Status: Chronic Qualifiers: Hypertension type: essential hypertension Qualified Code(s): I10 - Essential (primary) hypertension (7) Medical non-compliance Current Visit: Yes Status: Chronic Subjective Date of service: 06/06/18 Principal diagnosis: hf Interval history: Patient sitting at that in bed weight loss feeling better Objective Vital Signs Temp Pulse Resp BP Pulse Ox 06/06/18 10:56 97.9 F 82 18 120/65 97 06/06/18 07:36 98.4 F 84 20 114/58 96 06/06/18 06:01 98.0 F 89 20 126/75 95 06/06/18 04:05 87 06/06/18 00:31 97.6 F 86 20 128/69 98 06/05/18 22:43 82 115/63 06/05/18 20:18 98.0 F 85 20 115/63 99 06/05/18 19:30 82 06/05/18 15:38 98.2 F 91 H 20 161/92 97 - Physical Examination General: No Apparent Distress HEENT: Positive: PERRL, Normocephaly, Mucus Membranes Moist Neck: Positive: neck supple, trachea midline Cardiac: Positive: Reg Rate and Rhythm Lungs: Positive: Normal Exam Neuro: Positive: Grossly Intact Abdomen: Negative: Tender Skin: Negative: Rash Musculoskeletal: No Pain Extremities: Absent: edema - Labs and Meds Comprehensive Metabolic Panel 06/06/18 Range/Units 05:52 Sodium 137 (137-145) mmol/L Potassium 3.9 (3.6-5.0) mmol/L Chloride 94.8 L (98-107) mmol/L Carbon Dioxide 30 (22-30) mmol/L BUN 31 H (7-17) mg/dL Creatinine 1.8 H (0.7-1.2) mg/dL Glucose 356 H (65-100) mg/dL Calcium 8.0 L (8.4-10.2) mg/dL - Imaging and Cardiology EKG: report reviewed, image reviewed Echo: report reviewed (01/2018 showed EF 20-25%, dilated LA, grade 3 diastolic dysfunction, RVSP 45-50mmHg, mild MR, [place] and TR. ) - Telemetry EKG Rhythm: Sinus Rhythm - EKG Sinus rhythms and dysrhythmias: sinus rhythm
[2018-06-06] MEDS ORDERED: NON-FORMULARY (Insulin Aspart [Novolog Flexpen] 5 UNITS) SQ SCH (16:30)
[2018-06-06] MEDS: HumaLOG SUB-Q SCH (18:49)
[2018-06-06] MEDS: LOVENOX SUB-Q SCH (21:55)
--- NOTE | 2018-06-07 07:58 | Discharge Summary ---
Providers - Providers Date of Admission: 06/03/18 14:30 Date of discharge: 06/07/18 Attending physician: JOVANNY BALTAZAR 06/03/18 14:30 Consult to Physician [CONS] Routine Comment: Consulting Provider: ELYSIA BLACKMAN Physician Instructions: Reason For Exam: chf. Consult to Physician [CONS] Routine Comment: Consulting Provider: HAETH TINSLEY Physician Instructions: Reason For Exam: chf Primary care physician: CARMEN DAVIS [facility] Hospitalization Reason for admission: chf Condition: Critical Hospital course: The pt is a 58-year-old female with past medical history of dilated CMP, HTN, DM, HF, followed by Dr. Blackman, who presented to the log operations coordinator office for EP consultation with Dr. Guzman to discuss primary prevention of sudden cardiac on 06/03/18. In the office, the patient c/o of paroxysmal nocturnal dyspnea, orthopnea, SOB, THOMPSON and significant lower extremity edema for the past 2-3 weeks. Pt was referred to [facility] ED for further eval/management of acute on chronic systolic heart failure. Pt admitted that she stopped taking prescription medications about 2 months ago because the medications made her feel lethargic.Echo done 01/2018 showed EF 20-25%, dilated LA, grade 3 diastolic dysfunction, RVSP 45-50mmHg, mild MR, [place] and TR. Lexiscan MPI stress test done 10/2017 was negative for ischemia, EF 36%. The patient was admitted by the hospitalist team and seen by cardiology in consultation. Admitting diagnosis was acute hypoxemic respiratory failure secondary to acute on chronic HFrEF. Patient had an elevated d-dimer however CT of the chest was found to be negative for PE. The patient received appropriate medical management with Coreg, Lasix, Cozaar and spironolactone. Lasix was later decreased due to increasing creatinine--acute kidney injury secondary to vasomotor nephropathy/dehydration. The patient's dyspnea improved and cardiology felt the patient could discharge home. Discussed with the patient the importance of compliance with medication and diet. Dedicated discharge time 32 minutes. Disposition: - TO HOME OR SELFCARE Time spent for discharge: 32 - Discharge Diagnoses (1) Acute exacerbation of CHF (congestive heart failure) Status: Acute Qualifiers: Heart failure type: systolic Qualified Code(s): I50.23 - Acute on chronic systolic (congestive) heart failure (2) Acute on chronic HFrEF (heart failure with reduced ejection fraction) Status: Acute (3) THOMPSON (dyspnea on exertion) Status: Acute (4) Elevated d-dimer Status: Acute (5) Lower extremity edema Status: Acute (6) NSVT (nonsustained ventricular tachycardia) Status: Acute (7) Obesity hypoventilation syndrome Status: Acute (8) HTN (hypertension) Status: Chronic Qualifiers: Hypertension type: essential hypertension Qualified Code(s): I10 - Essential (primary) hypertension (9) Medical non-compliance Status: Chronic Core Measure Documentation - Palliative Care Palliative Care/ Comfort Measures: Not Applicable - Core Measures Any of the following diagnoses?: heart failure - Heart Failure Discharge Requirements JASON/ARB for LVSD if EF <40%: Yes Beta gaby at discharge: Yes Exam - Constitutional Vitals: Temp Pulse Resp BP Pulse Ox 98.3 F 83 20 111/63 97 06/07/18 04:58 06/07/18 04:58 06/07/18 04:58 06/07/18 04:58 06/07/18 04:58 General appearance: Present: no acute distress, well-nourished - EENT Eyes: Present: PERRL ENT: hearing intact, clear oral mucosa - Neck Neck: Present: supple, normal ROM - Respiratory Respiratory effort: normal Respiratory: bilateral: CTA - Cardiovascular Heart Sounds: Present: S1 & S2. Absent: rub, click - Extremities Extremities: pulses symmetrical, No edema Peripheral Pulses: within normal limits - Abdominal General gastrointestinal: Present: soft, non-tender, non-distended, normal bowel sounds Female genitourinary: Present: normal - Integumentary Integumentary: Present: clear, warm, dry - Musculoskeletal Musculoskeletal: gait normal, strength equal bilaterally - Psychiatric Psychiatric: appropriate mood/affect, intact judgment & insight - Neurologic Neurologic: CNII-XII intact, moves all extremities Plan Activity: advance as tolerated Weight Bearing Status: Weight Bear as Tolerated Diet: diabetic Follow up with: CARMEN DAVIS FNP-BC [Primary Care Provider] - 3-5 Days ELYSIA BLACKMAN MD [Staff Physician] - 7 Days Prescriptions: Spironolactone [Aldactone] 25 mg PO QDAY #30 tablet Carvedilol [Coreg] 6.25 mg PO BID #60 tablet Losartan [Cozaar] 25 mg PO QDAY #30 tablet Insulin Glargine [Lantus VIAL] 5 units SUB-Q QHS 30 Days units Furosemide [Lasix TAB] 40 mg PO QDAY #30 tablet
[2018-06-07] MEDS ORDERED: LASIX PO SCH (10:00)
[2018-06-07] MEDS: HumaLOG SUB-Q SCH ×2 (10:03→11:50)
[2018-06-07] MEDS: HumuLIN R SUB-Q SCH ×2 (10:03→11:50)
[2018-06-07] MEDS: COZAAR PO SCH (10:49)
[2018-06-07] MEDS: COREG PO SCH (11:01)
[2018-06-07] MEDS: ALDACTONE PO SCH (11:01)
[2018-06-07] MEDS: SODIUM CHLORIDE FLUSH SYRINGE 10 ML IV SCH (11:02)
[2018-06-07 11:19] VITALS: BP 124/73
--- NOTE | 2018-06-07 12:17 | Progress Note ---
Assessment and Plan Patient is compensated heart failure continue current dose of carvedilol ARB Lasix and Aldactone patient will follow with primary investment underwriter this week discussed in detail the importance of diet and compliance with medication and fluid restriction and salt restriction - Patient Problems (1) Respiratory failure Current Visit: Yes Status: Acute Qualifiers: Chronicity: acute Respiratory failure complication: hypoxia Qualified Code(s): J96.01 - Acute respiratory failure with hypoxia (2) Acute on chronic HFrEF (heart failure with reduced ejection fraction) Current Visit: Yes Status: Acute (3) NSVT (nonsustained ventricular tachycardia) Current Visit: Yes Status: Acute (4) SOB (shortness of breath) Current Visit: Yes Status: Chronic (5) Dilated cardiomyopathy Current Visit: Yes Status: Chronic (6) HTN (hypertension) Current Visit: Yes Status: Chronic Qualifiers: Hypertension type: essential hypertension Qualified Code(s): I10 - Essential (primary) hypertension (7) Medical non-compliance Current Visit: Yes Status: Chronic Subjective Date of service: 06/07/18 Principal diagnosis: hf Interval history: sob has resolved Objective Vital Signs Temp Pulse Resp BP BP Pulse Ox 06/07/18 11:17 97.8 F 67 20 124/73 98 06/07/18 10:00 79 06/07/18 07:51 97.9 F 77 20 102/60 96 06/07/18 04:58 98.3 F 83 20 111/63 97 06/07/18 00:04 98.1 F 91 H 20 124/72 98 06/06/18 23:11 81 06/06/18 19:38 98.2 F 82 20 129/73 97 06/06/18 15:51 97.9 F 81 18 121/68 100 - Physical Examination General: No Apparent Distress HEENT: Positive: PERRL, Normocephaly, Mucus Membranes Moist Neck: Positive: neck supple, trachea midline Cardiac: Positive: Reg Rate and Rhythm Lungs: Positive: clear to auscultation Neuro: Positive: Grossly Intact Abdomen: Negative: Tender Skin: Negative: Rash Musculoskeletal: No Pain Extremities: Absent: edema - Labs and Meds Comprehensive Metabolic Panel 06/07/18 Range/Units 05:50 Sodium 138 (137-145) mmol/L Potassium 4.1 (3.6-5.0) mmol/L Chloride 97.6 L (98-107) mmol/L Carbon Dioxide 29 (22-30) mmol/L BUN 34 H (7-17) mg/dL Creatinine 1.7 H (0.7-1.2) mg/dL Glucose 163 H (65-100) mg/dL Calcium 8.0 L (8.4-10.2) mg/dL - Imaging and Cardiology EKG: report reviewed, image reviewed Echo: report reviewed (01/2018 showed EF 20-25%, dilated LA, grade 3 diastolic dysfunction, RVSP 45-50mmHg, mild MR, [place] and TR. ) - Telemetry EKG Rhythm: Sinus Rhythm (8 beat nstvtach) - EKG Sinus rhythms and dysrhythmias: sinus rhythm
== END 2018-06-07 14:56 | disposition home or self-care (01) | DRG 291 ==
LOC: ED 11:45 → 4A 14:30
PROVIDERS: ADMIT Internal Medicine; ATTEND Hospitalist
DX: I11.0 Hypertensive heart disease with heart failure (principal); N17.0 Acute kidney failure with tubular necrosis; J96.01 Acute respiratory failure with hypoxia; E66.2 Morbid (severe) obesity with alveolar hypoventilation; I47.2 Ventricular tachycardia; E87.1 Hypo-osmolality and hyponatremia; I50.23 Acute on chronic systolic (congestive) heart failure; I42.0 Dilated cardiomyopathy; E86.0 Dehydration; I08.1 Rheumatic disorders of both mitral and tricuspid valves; E11.9 Type 2 diabetes mellitus without complications; Z88.0 Allergy status to penicillin; Z83.3 Family history of diabetes mellitus; Z91.19 Patient's noncompliance with other medical treatment and regimen; Z82.49 Family history of ischemic heart disease and other diseases of the circulatory system; Z68.31 Body mass index [BMI] 31.0-31.9, adult; Z79.84 Long term (current) use of oral hypoglycemic drugs
CPT/HCPCS: 36415; 71046; 71275; 80048; 80053; 81001; 82550; 82553; 82947; 82962; 83735; 83880; 84439; 84443; 84484; 85007; 85025; 85379; 85610; 85730; 93005; 93010; G0378; J1650; J1815; J1940; Q9967

== ENCOUNTER 2018-06-26 09:44 | Inpatient (IN) | payer MEDICARE ==
--- NOTE | 2018-06-26 11:11 | Emergency Department Report ---
ED Dizziness HPI - General Chief Complaint: Dizziness Stated Complaint: DIZZINESS/LOW BP Time Seen by Provider: 06/26/18 11:08 Source: patient Mode of arrival: Ambulatory Limitations: No Limitations - History of Present Illness Initial Comments: Patient is a 58-year-old female that presents emergency room for complaints of dizziness 6 days. Patient states she saw her body presser today who was noted to have low blood pressure. Patient was sent over to the ER for further I Alesha and treatment. Patient states she is feeling weak and fatigued and dizzy. Patient states that her symptoms are worsening. Patient denies chest pain. Patient is also complaining of shortness of breath. Patient states her symptoms are all better with rest. Patient states that her symptoms are worse with movement, exertion. Patient denies fever and chills. Patient denies abdominal pain. She has a history of CHF, diabetes and hypertension. Patient is currentl y wearing zoll life vest Complaint: dizziness, lightheadedness -: Sudden Timing: sudden onset Description: "room spinning", lightheadedness, off-balance History of Same: Yes History of Trauma: No Severity: severe Improves With: remaining still, rest Worsens With: movement, position, exertion Associated Symptoms: malaise, shortness of breath, weakness. denies: ataxia, chest pain, confusion, cough, diaphoresis, fever/chills, loss of appetite, rash, seizure, syncope - Related Data Home Medications Medication Instructions Recorded Confirmed Last Taken Insulin Aspart [NovoLOG Flexpen] 5 units SQ AC 06/03/18 06/26/18 06/26/18 Previous Rx's Medication Instructions Recorded Last Taken Type Carvedilol [Coreg] 6.25 mg PO BID #60 tablet 06/07/18 06/25/18 Rx Furosemide [Lasix TAB] 40 mg PO QDAY #30 tablet 06/07/18 06/25/18 Rx Insulin Glargine [Lantus VIAL] 5 units SUB-Q QHS 30 Days units 06/07/18 06/25/18 Rx Losartan [Cozaar] 25 mg PO QDAY #30 tablet 06/07/18 06/25/18 Rx Spironolactone [Aldactone] 25 mg PO QDAY #30 tablet 06/07/18 06/25/18 Rx Allergies Allergy/AdvReac Type Severity Reaction Status Date / Time Penicillins AdvReac Unknown Verified 06/26/18 09:45 ED Review of Systems ROS: Stated complaint: DIZZINESS/LOW BP Other details as noted in HPI Constitutional: denies: chills, fever Eyes: denies: eye pain, eye discharge, vision change ENT: denies: ear pain, throat pain Respiratory: denies: cough, shortness of breath, wheezing Cardiovascular: denies: chest pain, palpitations Endocrine: no symptoms reported Gastrointestinal: denies: abdominal pain, nausea, diarrhea Genitourinary: denies: urgency, dysuria, discharge Musculoskeletal: denies: back pain, joint swelling, arthralgia Skin: denies: rash, lesions Neurological: denies: headache, weakness, paresthesias Psychiatric: denies: anxiety, depression Hematological/Lymphatic: denies: easy bleeding, easy bruising ED Past Medical Hx - Past Medical History Previous Medical History?: Yes Hx Congestive Heart Failure: Yes (zoll life vest) Hx Diabetes: Yes Hx Asthma: No Hx COPD: No - Surgical History Past Surgical History?: Yes Additional Surgical History: C section - Family History Family history: no significant - Social History Smoking Status: Never Smoker Substance Use Type: None - Medications Home Medications: Home Medications Medication Instructions Recorded Confirmed Last Taken Type Insulin Aspart [NovoLOG Flexpen] 5 units SQ AC 06/03/18 06/26/18 06/26/18 History Carvedilol [Coreg] 6.25 mg PO BID #60 tablet 06/07/18 06/26/18 06/25/18 Rx Furosemide [Lasix TAB] 40 mg PO QDAY #30 tablet 06/07/18 06/26/18 06/25/18 Rx Insulin Glargine [Lantus VIAL] 5 units SUB-Q QHS 30 Days units 06/07/18 06/26/18 06/25/18 Rx Losartan [Cozaar] 25 mg PO QDAY #30 tablet 06/07/18 06/26/18 06/25/18 Rx Spironolactone [Aldactone] 25 mg PO QDAY #30 tablet 06/07/18 06/26/18 06/25/18 Rx ED Physical Exam - General Limitations: No Limitations General appearance: alert, in no apparent distress - Head Head exam: Present: atraumatic, normocephalic - Eye Eye exam: Present: normal appearance, PERRL, other (scleral pallor) Pupils: Present: normal accommodation - ENT ENT exam: Present: mucous membranes moist - Neck Neck exam: Present: normal inspection. Absent: tenderness - Respiratory Respiratory exam: Present: normal lung sounds bilaterally. Absent: respiratory distress, wheezes, rales - Cardiovascular Cardiovascular Exam: Present: regular rate, normal rhythm. Absent: systolic murmur, diastolic murmur, rubs, gallop - GI/Abdominal GI/Abdominal exam: Present: soft, normal bowel sounds. Absent: distended, tenderness, guarding - Extremities Exam Extremities exam: Present: normal inspection - Back Exam Back exam: Present: normal inspection - Neurological Exam Neurological exam: Present: alert, oriented X3 - Psychiatric Psychiatric exam: Present: normal affect, normal mood - Skin Skin exam: Present: warm, dry, intact, normal color. Absent: rash ED Course Vital Signs 06/26/18 06/26/18 06/26/18 09:50 13:14 13:22 Temperature 97.7 F 98.0 F Pulse Rate 84 75 Respiratory 16 13 14 Rate Blood Pressure 103/61 Blood Pressure 144/83 [Right] O2 Sat by Pulse 98 100 100 Oximetry 06/26/18 06/26/18 06/26/18 14:00 14:15 15:24 Temperature Pulse Rate 78 77 78 Respiratory 12 8 L 15 Rate Blood Pressure 158/84 144/83 Blood Pressure 150/90 [Right] O2 Sat by Pulse 100 100 98 Oximetry - Reevaluation(s) Reevaluation #1: Discussed all results with patient. Patient agrees with plan of care and admission. Patient will be admitted to the hospitalist service. 06/26/18 12:28 - Consultations Consultation #1: Hospitalist consult for admission. Hospitalist to admit patient. Bridge orders placed. 06/26/18 12:57 06/26/18 12:57 ED Medical Decision Making - Lab Data Result diagrams: 06/26/18 11:37 06/26/18 11:37 - EKG Data -: EKG Interpreted by Me EKG shows normal: sinus rhythm, axis, intervals, QRS complexes, ST-T waves Rate: normal - Radiology Data Radiology results: report reviewed AP CHEST: HISTORY: Lightheadedness, dizziness Borderline to mild cardiomegaly appears stable since 06/04/18. Normal pulmonary vascularity. The lungs are clear. The bony thorax is intact. IMPRESSION: Borderline to mild cardiomegaly. Lungs clear. CT HEAD WITHOUT CONTRAST: HISTORY: Lightheadedness, dizziness. TECHNIQUE: Sequential 2.5mm CT images. COMPARISON: none. FINDINGS: Cerebral Parenchyma: Mild chronic small vessel disease is identified in both parietal regions. Chronic lacunar infarcts measuring up to 5 mm are identified in both thalami. The remaining brain parenchyma is within normal limits. Cerebellum: Within normal limits. Brainstem: Within normal limits. Ventricles: Normal. Sella: Normal. Extra-axial spaces: Normal. Basal Cisterns: Normal. Intracranial Hemorrhage: None. Midline Shift: None. Calvarium: Normal. Sinuses: Normal. Mastoid Air Cells: Normal. Visualized Orbits: Normal. IMPRESSION: Mild chronic white matter changes. Chronic lacunar infarcts in both thalami. No acute intracranial process. - Medical Decision Making Patient is a 58-year-old male that presents emergency room with complaints of dizziness and hypotension. Patient center by her body presser for further treatment. Patient will be admitted to the hospitalist service. Labs discussed with patient. Labs unremarkable except for abnormal chemistry. . Patient normally has a normal renal function as an outpatient, Last creatinine was 1.0... Patient was given 500 mils of fluids, Patient's blood pressure responded well. - Differential Diagnosis hypotension. Medication reaction. Dizziness. thompson. CHF. Critical Care Time: Yes Critical care attestation.: If time is entered above; I have spent that time in minutes in the direct care o f this critically ill patient, excluding procedure time. Critical Care Time: 35 minutes ED Disposition Clinical Impression: Dizziness, Weakness, THOMPSON (dyspnea on exertion), Hyperkalemia, Renal insufficiency, Elevated serum creatinine, Glucosuria Hypotension Qualifiers: Hypotension type: unspecified hypotension type Qualified Code(s): I95.9 - Hypotension, unspecified Disposition: DC-09 OP ADMIT IP TO THIS HOSP Is pt being admited?: Yes Does the pt Need Aspirin: No Condition: Critical Time of Disposition: 12:58
--- NOTE | 2018-06-26 11:32 | XRay Report ---
AP CHEST: HISTORY: Lightheadedness, dizziness Borderline to mild cardiomegaly appears stable since 06/04/18. Normal pulmonary vascularity. The lungs are clear. The bony thorax is intact. IMPRESSION: Borderline to mild cardiomegaly. Lungs clear.
--- NOTE | 2018-06-26 11:46 | Cat Scan Report ---
CT HEAD WITHOUT CONTRAST: HISTORY: Lightheadedness, dizziness. TECHNIQUE: Sequential 2.5mm CT images. COMPARISON: none. FINDINGS: Cerebral Parenchyma: Mild chronic small vessel disease is identified in both parietal regions. Chronic lacunar infarcts measuring up to 5 mm are identified in both thalami. The remaining brain parenchyma is within normal limits. Cerebellum: Within normal limits. Brainstem: Within normal limits. Ventricles: Normal. Sella: Normal. Extra-axial spaces: Normal. Basal Cisterns: Normal. Intracranial Hemorrhage: None. Midline Shift: None. Calvarium: Normal. Sinuses: Normal. Mastoid Air Cells: Normal. Visualized Orbits: Normal. IMPRESSION: Mild chronic white matter changes. Chronic lacunar infarcts in both thalami. No acute intracranial process.
[2018-06-26 11:53] LABS: Hematocrit 39.8 % (30.3-42.9); Hemoglobin 13.2 gm/dl (10.1-14.3); Mean Corpuscular HGB Conc 33 % (30-34); Mean Corpuscular Volume 83 fl (79-97); Platelet Count 290 K/mm3 (140-440); Red Blood Count 4.78 M/mm3 (3.65-5.03)
[2018-06-26 12:19] LABS: Albumin 3.1 g/dL (3.9-5); Calcium 9.2 mg/dL (8.4-10.2)
[2018-06-26 12:45] LABS: Anisocytosis 1+; Basophils % (Manual) 0 % (0.0-1.8); Total Cells Counted 100
[2018-06-26 12:46] LABS: Large Platelets Few; Platelet Estimate Consistent w Auto
[2018-06-26] MEDS ORDERED: NACL 0.9% 500 ML 500 ML IV ONE (12:56)
[2018-06-26 15:50] LABS: Bilirubin,Urine NEG (Negative); Blood,Urine SM (Negative); Color,Urine Straw (Yellow); Urobilinogen,Urine < 2.0 mg/dL (<2.0)
[2018-06-26] MEDS ORDERED: DILAUDID IV PRN (20:39)
[2018-06-26] MEDS ORDERED: SODIUM CHLORIDE FLUSH SYRINGE 10 ML IV PRN (20:39)
[2018-06-26] MEDS ORDERED: TYLENOL PO PRN (20:39)
[2018-06-26] MEDS ORDERED: PERCOCET 5/325 PO PRN (20:39)
[2018-06-26] MEDS ORDERED: ZOFRAN IV PRN (20:39)
[2018-06-26] MEDS ORDERED: ALDACTONE PO SCH (21:00)
[2018-06-26] MEDS: LANTUS SUB-Q SCH (21:32)
[2018-06-26] MEDS: LOVENOX SUB-Q SCH (21:32)
[2018-06-26] MEDS: COREG PO SCH (21:32)
[2018-06-26] MEDS: COZAAR PO SCH (21:32)
[2018-06-26] MEDS: SODIUM CHLORIDE FLUSH SYRINGE 10 ML IV SCH (21:32)
[2018-06-27] MEDS: HumaLOG SUB-Q SCH ×8 (01:33→21:38)
--- NOTE | 2018-06-27 06:20 | Event Note ---
Date: 06/26/18 See H/p in reports Hypotension Life vest CHF IDDM
--- NOTE | 2018-06-27 06:56 | History and Physical Report ---
CHIEF COMPLAINT: Dizziness and lightheadedness for 6 days. HISTORY OF PRESENT ILLNESS: A 58-year-old female with a history of hypertension, insulin-dependent diabetes, sent from [facility] for low blood pressure. The patient has been having dizziness and lightheadedness for the last 6 days. The patient also feeling weak and fatigued. Symptoms are worse when standing. Also, shortness of breath. Her symptoms are better with rest. Exacerbating factor is exertion. The patient is wearing LifeVest from [employer]. When she stands, the patient feels as if the room is spinning and the patient is off balance. No recent travel. PAST MEDICAL HISTORY: As mentioned, diabetes, congestive heart failure, hypertension. PAST SURGICAL HISTORY: . FAMILY HISTORY: No significant family history. SOCIAL HISTORY: Does not smoke. No alcohol, no recreational drugs. CURRENT MEDICATIONS: NovoLog 5 units before each meal, Coreg 6.25 b.i.d., Lasix 40 mg once a day, Lantus 5 units at night time, losartan 25 mg once a day, spironolactone 25 mg once a day. REVIEW OF SYSTEMS: Significant for severe dizziness and lightheadedness and shortness of breath. Feeling weak. Otherwise, review of systems negative. PHYSICAL EXAMINATION: GENERAL: Middle-aged female, cooperative during examination. VITAL SIGNS: Blood pressure is 156/82. Temperature is 97.2. Pulse is 80. Respirations are 20. HEENT: Unremarkable. Pupils equal and reactive. NECK: Supple, no lymphadenopathy, no thyromegaly. LUNGS: Clear to auscultation and percussion. Scattered rales. CARDIOVASCULAR SYSTEM: S1, S2 heard. No gallop, no murmur, no rub. Apical impulse in left fifth intercostal space in midclavicular line. ABDOMEN: Soft and benign. No hepatosplenomegaly. No guarding, no rigidity. Hernial orifices are normal. EXTREMITIES: Good pedal pulses. No pedal edema. CENTRAL NERVOUS SYSTEM: Alert and oriented x 4, nonfocal exam. LABORATORY AND DIAGNOSTIC DATA: EKG shows a normal sinus rhythm, 80 is the heart rate. Labs are significant for white count of 3000, H and H is 13.2 and 39.8, platelet count is 290,000. Sodium is 133, potassium is 5.2, BUN and creatinine is 43 and 1.7, glucose is 200, CK-MB is 5.8 and urine is negative. Chest x-ray shows borderline mild cardiomegaly. Lungs are clear. Head CT shows mild chronic white matter changes, chronic lacunar infarcts in both thalami. No acute intracranial process. ASSESSMENT AND PLAN: 1. Hypotension. The patient had hypotension in the professional tutor's office and the initial blood pressure was 103/61, went up to 144/83 and 158/84. The patient to be admitted for observation and her home medications were restarted in the form of losartan 25 mg daily and carvedilol 6.25 b.i.d. We will hold the medicines if the blood pressure goes below 100/50. 2. Congestive heart failure. The patient to get Lasix, but was put on hold. We will resume if the blood pressure is reasonable. The patient was given a small bolus of IV fluid because of the hypotension. Congestive heart failure, Lasix on hold. 3. Insulin-dependent diabetes. Continue home insulin and coverage. 4. Deep venous thrombosis prophylaxis, Lovenox 30 mg subcutaneous daily. 5. Acute kidney injury, possibly secondary to diuretics. Diuretics on hold for now. Repeat BMP and reassess the acute kidney injury. 6. Hyperkalemia, mild. We will hold the spironolactone for now. JOB# [id number] ADOLPH/JOLENE
[2018-06-27] MEDS ORDERED: NON-FORMULARY (Insulin Aspart [Novolog Flexpen] 5 UNITS) SQ SCH (07:30)
--- NOTE | 2018-06-27 08:54 | Consultation ---
History of Present Illness Consult date: 06/27/18 Requesting physician: RODOLFO CALDERÓN Consult reason: hypotension History of present illness: -year-old female with history of dilated cardiomyopathy ejection fraction 25- 50%, grade 3 diastolic dysfunction, poorly controlled diabetes who presents to [facility] emergency department complaining of dizziness that she describes as feeling like she is followed for the last 6 days. The patient also reports that she's been having a lot of fatigue and when standing for long periods of time she feels as if she needs to sit down. Here in the emergency department the patient was noted to have a white count of 3.0 sodium 133 potassium 5.2 BUNs 43 creatinine 1.7 glucose. Her hemoglobin A1c was 12.7. A head CT revealed periventricular white matter disease with chronic lacunar infarcts in both thalami. Chest x-ray did not reveal any infiltrates or effusions. An EKG revealed sinus rhythm with no acute changes. Past History Past Medical History: diabetes, heart failure, hypertension Past Surgical History: Social history: denies: smoking, alcohol abuse, IV drug use Family history: denies: no significant family history Medications and Allergies Allergies Allergy/AdvReac Type Severity Reaction Status Date / Time Penicillins AdvReac Unknown Verified 06/26/18 09:45 Home Medications Medication Instructions Recorded Confirmed Last Taken Type Insulin Aspart [NovoLOG Flexpen] 5 units SQ AC 06/03/18 06/26/18 06/26/18 History Carvedilol [Coreg] 6.25 mg PO BID #60 tablet 06/07/18 06/26/18 06/25/18 Rx Furosemide [Lasix TAB] 40 mg PO QDAY #30 tablet 06/07/18 06/26/18 06/25/18 Rx Insulin Glargine [Lantus VIAL] 5 units SUB-Q QHS 30 Days units 06/07/18 06/26/18 06/25/18 Rx Losartan [Cozaar] 25 mg PO QDAY #30 tablet 06/07/18 06/26/18 06/25/18 Rx Spironolactone [Aldactone] 25 mg PO QDAY #30 tablet 06/07/18 06/26/18 06/25/18 Rx Active Meds: Active Medications Acetaminophen (Tylenol) 650 mg PO Q4H PRN PRN Reason: Pain MILD(1-3)/Fever >100.5/GALLEGOS Carvedilol (Coreg) 6.25 mg PO BID [facility] Last Admin: 06/26/18 21:32 Dose: 6.25 mg Documented by: Enoxaparin Sodium (Lovenox) 40 mg SUB-Q QDAY@2200 [facility] Last Admin: 06/26/18 21:32 Dose: 40 mg Documented by: Hydromorphone HCl (Dilaudid) 0.5 mg IV Q3H PRN PRN Reason: Pain , Severe (7-10) Insulin Glargine (Lantus) 5 units SUB-Q QHS [facility] Last Admin: 06/26/18 21:32 Dose: 5 units Documented by: Insulin Human Lispro (Humalog) 0 unit SUB-Q ACHS [facility]; Protocol Last Admin: 06/27/18 08:32 Dose: Not Given Documented by: Insulin Human Lispro (Humalog) 5 unit SUB-Q [facility] Last Admin: 06/27/18 08:32 Dose: Not Given Documented by: Losartan Potassium (Cozaar) 25 mg PO QDAY [facility] Last Admin: 06/26/18 21:32 Dose: 25 mg Documented by: Ondansetron HCl (Zofran) 4 mg IV Q8H PRN PRN Reason: Nausea And Vomiting Oxycodone/Acetaminophen (Percocet 5/325) 1 tab PO Q6H PRN PRN Reason: Pain, Moderate (4-6) Sodium Chloride (Sodium Chloride Flush Syringe 10 Ml) 10 ml IV BID [facility] Last Admin: 06/26/18 21:32 Dose: 10 ml Documented by: Sodium Chloride (Sodium Chloride Flush Syringe 10 Ml) 10 ml IV PRN PRN PRN Reason: LINE FLUSH Review of Systems Constitutional: weight loss, no weight gain, no fever, no chills, no night sweats Ears, nose, mouth and throat: no ear discharge, no tinnitis, no decreased hearing Breasts: deferred Cardiovascular: lightheadedness, decreased exercise tolerance, no chest pain, no orthopnea, no palpitations, no edema, no syncope, no shortness of breath, no leg edema Respiratory: no cough, no hemoptysis, no shortness of breath Gastrointestinal: no abdominal pain, no nausea, no vomiting Genitourinary Female: no dysuria, no urgency Rectal: no bleeding, no itching, no hemorrhoids Musculoskeletal: no neck stiffness, no neck pain Integumentary: no rash, no pruritis Neurological: no head injury, no transient paralysis, no weakness Psychiatric: no anxiety, no memory loss Endocrine: no cold intolerance, no heat intolerance Hematologic/Lymphatic: no easy bruising, no easy bleeding Allergic/Immunologic: no urticaria, no allergic rhinitis Physical Examination Vital Signs Temp Pulse Resp BP Pulse Ox 97.7 F 84 16 103/61 98 06/26/18 09:50 06/26/18 09:50 06/26/18 09:50 06/26/18 09:50 06/26/18 09:50 General appearance: no acute distress HEENT: Positive: PERRL Neck: Positive: neck supple, trachea midline Cardiac: Positive: Reg Rate and Rhythm Lungs: Positive: Normal Exam, clear to auscultation, Normal Breath Sounds Neuro: Positive: Grossly Intact Abdomen: Positive: Unremarkable, Soft, Active Bowel Sounds Female genitourinary: deferred Skin: Negative: Rash, Suspicious Lesions Musculoskeletal: Normal Range of Motion Extremities: Present: normal, warm. Absent: edema Results 06/26/18 11:37 06/26/18 11:37 Cardiac Enzymes 06/26/18 06/26/18 Range/Units 11:37 11:37 AST 26 (5-40) units/L CK-MB (CK-2) 2.0 (0.0-4.0) ng/mL CBC 06/26/18 Range/Units 11:37 WBC 3.0 L (4.5-11.0) K/mm3 RBC 4.78 (3.65-5.03) M/mm3 Hgb 13.2 (10.1-14.3) gm/dl Hct 39.8 (30.3-42.9) % Plt Count 290 (140-440) K/mm3 Comprehensive Metabolic Panel 06/26/18 Range/Units 11:37 Sodium 133 L (137-145) mmol/L Potassium 5.2 H (3.6-5.0) mmol/L Chloride 95.1 L (98-107) mmol/L Carbon Dioxide 24 (22-30) mmol/L BUN 43 H (7-17) mg/dL Creatinine 1.7 H (0.7-1.2) mg/dL Glucose 200 H (65-100) mg/dL Calcium 9.2 (8.4-10.2) mg/dL AST 26 (5-40) units/L ALT 17 (7-56) units/L Alkaline Phosphatase 103 (35-129) units/L Total Protein 7.3 (6.3-8.2) g/dL Albumin 3.1 L (3.9-5) g/dL - Imaging and Cardiology Stress echo: report reviewed (myocardial perfusion scan 11/01: No evidence of significant myocardial ischemia or necrosis ) Echo: report reviewed (ECHO 02/01: EF 20-25%, grade III diastolic dysfunction) EKG interpretations - Telemetry EKG Rhythm: Sinus Rhythm Assessment and Plan 58 Female Hypotension/hyponatremia/Dizziness Likely secondary to over diuresis Patient's creatinine on last hospital admission was 1.0 and at discharge was 1.5 Hold diuretic for now Acute on chronic kidney disease Prerenal Hold diuretic for monitor Was discharged home on furosemide 40 mg by mouth daily and spironolactone 25 mg daily Dilated Cardiomyopathy EF 20-25% Chronic systolic heart failure Diabetes Poorly controlled most recent hemoglobin A1c 12.7
[2018-06-27] MEDS ORDERED: NACL 0.45% 500 ML IV SCH (10:00)
[2018-06-27] MEDS: COZAAR PO SCH (10:36)
[2018-06-27] MEDS: COREG PO SCH ×2 (10:36→21:37)
--- NOTE | 2018-06-27 17:23 | Progress Note ---
Assessment and Plan Hypotension/hyponatremia/Dizziness Likely secondary to over diuresis Patient's creatinine on last hospital admission was 1.0 and at discharge was 1.5 Hold diuretic for now Acute on chronic kidney disease Prerenal Hold diuretic for monitor Was discharged home on furosemide 40 mg by mouth daily and spironolactone 25 mg daily Dilated Cardiomyopathy EF 20-25% lasix as necessary Chronic systolic heart failure Diabetes Hemoglobin A1c 12.7 Adjust Insulin and hypoglycemics Patient counselled Dvt Prophylaxis On Lovenox Subjective Date of service: 06/27/18 Principal diagnosis: Low BP and CHF Interval history: 58-year-old female presents to emergency room for complaints of dizziness 6 days. Patient states she saw her clinical laboratory science professor today who noted that she has low blood pressure. Patient was sent over to the ER for further eval and treatment. Patient states she is feeling weak and fatigued and dizzy. Patient states that her symptoms are worsening. Patient denies chest pain. Patient is also complaining of shortness of breath. Patient states her symptoms are all better with rest. Patient states that her symptoms are worse with movement and exertion. Patient denies fever and chills. Patient denies abdominal pain. She has a history of CHF, diabetes and hypertension. Patient is currently wearing zoll life vest Objective - Constitutional Vitals: Vital Signs - 12hr 06/27/18 06/27/18 06/27/18 08:57 09:00 12:47 Temperature 97.8 F 97.5 F L Pulse Rate 75 75 83 Respiratory 12 14 Rate Blood Pressure 113/61 89/50 O2 Sat by Pulse 97 99 Oximetry General appearance: Present: no acute distress, well-nourished - EENT Eyes: PERRL, EOM intact ENT: hearing intact, clear oral mucosa Ears: bilateral: normal - Neck Neck: supple, normal ROM - Respiratory Respiratory effort: normal Respiratory: bilateral: CTA - Breasts Breasts: normal - Cardiovascular Heart rate: 78 Rhythm: regular Heart Sounds: Present: S1 & S2. Absent: gallop, rub Extremities: pulses intact, No edema, normal color, Full ROM - Gastrointestinal General gastrointestinal: Present: soft, non-tender, non-distended, normal bowel sounds Rectal Exam: deferred - Genitourinary Female genitourinary: normal - Integumentary Integumentary: clear, warm, dry - Musculoskeletal Musculoskeletal: 1, strength equal bilaterally - Neurologic Neurologic: moves all extremities - Psychiatric Psychiatric: memory intact, appropriate mood/affect, intact judgment & insight - Allied health notes Allied health notes reviewed: nursing, case management - Labs CBC & Chem 7: 06/26/18 11:37 06/28/18 11:44 Labs: Abnormal lab results 06/26/18 06/27/18 06/27/18 Range/Units 22:12 05:02 11:38 POC Glucose 398 H 257 H (70-105) Hemoglobin A1c 12.7 H (4-6) % 06/27/18 Range/Units 16:04 POC Glucose 169 H (70-105) Hemoglobin A1c (4-6) %
[2018-06-27] MEDS: LANTUS SUB-Q SCH (21:37)
[2018-06-27] MEDS: SODIUM CHLORIDE FLUSH SYRINGE 10 ML IV SCH ×2 (21:37→21:38)
[2018-06-27] MEDS: LOVENOX SUB-Q SCH (21:37)
[2018-06-28] MEDS: HumaLOG SUB-Q SCH ×7 (08:21→21:46)
[2018-06-28] MEDS: COREG PO SCH ×2 (11:12→21:48)
[2018-06-28] MEDS: COZAAR PO SCH (11:12)
[2018-06-28] MEDS: LANTUS SUB-Q SCH (11:13)
[2018-06-28] MEDS: SODIUM CHLORIDE FLUSH SYRINGE 10 ML IV SCH ×2 (11:14→21:48)
--- NOTE | 2018-06-28 11:21 | Progress Note ---
Assessment and Plan Assessment and plan: Patient is a 58 yo woman with a history of IDDM, hypertension, CHF and Dilated Cardiomyopathy with est EF 20-25% (per Cardiology because no ECHO in our EMR) who presented to [facility] ED with dizziness. She was found to have a WBC of 3.0, sodium 133 potassium, 5.2 BUNs 43 creatinine 1.7 glucose. Her hemoglobin A1c was 12.7. A head CT revealed periventricular white matter disease with chronic lacunar infarcts in both thalami. Chest x-ray did not reveal any infiltrates or effusions. An EKG revealed sinus rhythm with no acute changes. She was just discharged from here on 06/07/18 after treatment of CHF. Here Creatinine upon discharge was 1.7; however, her Creatinine on admission 06/05/18 was only 1.0. She was sent home on new diuretics. The dizziness is most likely from the hypotension and the hypotension/dehydration/ARF from diuretics. Yesterday, Cardiology gave her gentle hydration. -Hypotension/hyponatremia/Dizziness Likely secondary to over diuresis, Patient's creatinine on last hospital admission was 1.0 and at discharge was 1.7: Hold diuretics for now very complex medical decision because possible worsen CHF, strict i/o and credit counselor on fluid restriction, monitor BMP daily -Acute Renal failure due to ATN, hypotension, and vasomotor nephropathy: Ordered renal u/s, consulted Nephrology, hold diuretics, treated with gentle iv fluids, -Dilated Cardiomyopathy EF 20-25% and Chronic systolic heart failure: Cardiology is following -Uncontrolled IDDM, hemoglobin A1c 12.7 counseling done, increased Lantus -Hyperkalemia mild: monitor closely, repeat levels DVT/GI ppx reviewed History Interval history: Patient was seen and examined. Follow-up on current diagnosis of ARF. Overnight uneventful. Patient denies any chest pain, shortness breath, nausea/vomiting or severe headaches. Imaging, nursing note, chart, labs and old chart reviewed. Discussed with patient. Hospitalist Physical - Physical exam Narrative exam: Gen: WDWN, NAD, Awake, Alert, Orientated HEENT: NCAT, EOMI, PERRL, OP Clear Neck: supple, no adenopathy, no thyromegaly, no JVD CVS/Heart: RRR, normal S1S2, pulses present bilaterally Chest/Lungs: CTA B, Symmetrical chest expansion, good air entry bilaterally GI/Abdomen: soft, NTND, good bowel sounds, no guarding or rebound /Bladder: no suprapubic tenderness, no CVA or paraspinal tenderness Extermity/Skin: no c/c/e, no obvious rash MSK: FROM x 4 Neuro: CN 2-12 grossly intact, no new focal deficits Psych: calm - Constitutional Vitals: Temp Pulse Resp BP Pulse Ox 97.8 F 80 18 102/59 100 06/28/18 09:40 06/28/18 09:40 06/28/18 09:40 06/28/18 09:40 06/28/18 09:40 General appearance: Present: no acute distress Results - Labs CBC & Chem 7: 06/26/18 11:37 06/26/18 11:37 Labs: Laboratory Last Values WBC 3.0 K/mm3 (4.5-11.0) L 06/26/18 11:37 RBC 4.78 M/mm3 (3.65-5.03) 06/26/18 11:37 Hgb 13.2 gm/dl (10.1-14.3) 06/26/18 11:37 Hct 39.8 % (30.3-42.9) 06/26/18 11:37 MCV 83 fl (79-97) 06/26/18 11:37 MCH 28 pg (28-32) 06/26/18 11:37 MCHC 33 % (30-34) 06/26/18 11:37 RDW 16.0 % (13.2-15.2) H 06/26/18 11:37 Plt Count 290 K/mm3 (140-440) 06/26/18 11:37 Vernon % (Auto) Lead Front Desk Agent 06/26/18 11:37 Add Manual Diff Complete 06/26/18 11:37 Total Counted 100 06/26/18 11:37 Seg Neutrophils % Lead Front Desk Agent 06/26/18 11:37 Seg Neuts % (Manual) 49.0 % (40.0-70.0) 06/26/18 11:37 Band Neutrophils % 0 % 06/26/18 11:37 Lymphocytes % (Manual) 32.0 % (13.4-35.0) 06/26/18 11:37 Reactive Lymphs % (Man) 2.0 % 06/26/18 11:37 Monocytes % (Manual) 16.0 % (0.0-7.3) H 06/26/18 11:37 Eosinophils % (Manual) 1.0 % (0.0-4.3) 06/26/18 11:37 Basophils % (Manual) 0 % (0.0-1.8) 06/26/18 11:37 Metamyelocytes % 0 % 06/26/18 11:37 Myelocytes % 0 % 06/26/18 11:37 Promyelocytes % 0 % 06/26/18 11:37 Blast Cells % 0 % 06/26/18 11:37 Nucleated RBC % Not Reportable 06/26/18 11:37 Seg Neutrophils # Man 1.5 K/mm3 (1.8-7.7) L 06/26/18 11:37 Band Neutrophils # 0.0 K/mm3 06/26/18 11:37 Lymphocytes # (Manual) 1.0 K/mm3 (1.2-5.4) L 06/26/18 11:37 Abs React Lymphs (Man) 0.1 K/mm3 06/26/18 11:37 Monocytes # (Manual) 0.5 K/mm3 (0.0-0.8) 06/26/18 11:37 Eosinophils # (Manual) 0.0 K/mm3 (0.0-0.4) 06/26/18 11:37 Basophils # (Manual) 0.0 K/mm3 (0.0-0.1) 06/26/18 11:37 Metamyelocytes # 0.0 K/mm3 06/26/18 11:37 Myelocytes # 0.0 K/mm3 06/26/18 11:37 Promyelocytes # 0.0 K/mm3 06/26/18 11:37 Blast Cells # 0.0 K/mm3 06/26/18 11:37 WBC Morphology Not Reportable 06/26/18 11:37 Hypersegmented Neuts Not Reportable 06/26/18 11:37 Hyposegmented Neuts Not Reportable 06/26/18 11:37 Hypogranular Neuts Not Reportable 06/26/18 11:37 Smudge Cells Not Reportable 06/26/18 11:37 Toxic Granulation Not Reportable 06/26/18 11:37 Toxic Vacuolation Not Reportable 06/26/18 11:37 Dohle Bodies Not Reportable 06/26/18 11:37 Pelger-Huet Anomaly Not Reportable 06/26/18 11:37 Beatriz Rods Not Reportable 06/26/18 11:37 Platelet Estimate Consistent w auto 06/26/18 11:37 Clumped Platelets Not Reportable 06/26/18 11:37 Plt Clumps, EDTA Not Reportable 06/26/18 11:37 Large Platelets Few 06/26/18 11:37 Giant Platelets Not Reportable 06/26/18 11:37 Platelet Satelliting Not Reportable 06/26/18 11:37 Plt Morphology Comment Not Reportable 06/26/18 11:37 RBC Morphology Not Reportable 06/26/18 11:37 Dimorphic RBCs Not Reportable 06/26/18 11:37 Polychromasia Not Reportable 06/26/18 11:37 Hypochromasia Not Reportable 06/26/18 11:37 Poikilocytosis Not Reportable 06/26/18 11:37 Anisocytosis 1+ 06/26/18 11:37 Microcytosis Not Reportable 06/26/18 11:37 Macrocytosis Not Reportable 06/26/18 11:37 Spherocytes Not Reportable 06/26/18 11:37 Pappenheimer Bodies Not Reportable 06/26/18 11:37 Sickle Cells Not Reportable 06/26/18 11:37 Target Cells Not Reportable 06/26/18 11:37 Tear Drop Cells Not Reportable 06/26/18 11:37 Ovalocytes Not Reportable 06/26/18 11:37 Helmet Cells Not Reportable 06/26/18 11:37 Fernández-Ebony Bodies Not Reportable 06/26/18 11:37 Bynum Rings Not Reportable 06/26/18 11:37 Claudia Cells Not Reportable 06/26/18 11:37 Bite Cells Not Reportable 06/26/18 11:37 Crenated Cell Not Reportable 06/26/18 11:37 Elliptocytes Not Reportable 06/26/18 11:37 Acanthocytes (Spur) Not Reportable 06/26/18 11:37 Rouleaux Not Reportable 06/26/18 11:37 Hemoglobin C Crystals Not Reportable 06/26/18 11:37 Schistocytes Not Reportable 06/26/18 11:37 Malaria parasites Not Reportable 06/26/18 11:37 Patrick Bodies Not Reportable 06/26/18 11:37 Hem Pathologist Commnt No 06/26/18 11:37 Sodium 133 mmol/L (137-145) L 06/26/18 11:37 Potassium 5.2 mmol/L (3.6-5.0) H 06/26/18 11:37 Chloride 95.1 mmol/L (98-107) L 06/26/18 11:37 Carbon Dioxide 24 mmol/L (22-30) 06/26/18 11:37 Anion Gap 19 mmol/L 06/26/18 11:37 BUN 43 mg/dL (7-17) H 06/26/18 11:37 Creatinine 1.7 mg/dL (0.7-1.2) H 06/26/18 11:37 Estimated GFR 37 ml/min 06/26/18 11:37 BUN/Creatinine Ratio 25 % 06/26/18 11:37 Glucose 200 mg/dL (65-100) H 06/26/18 11:37 POC Glucose 346 (70-105) H 06/28/18 07:48 Hemoglobin A1c 12.7 % (4-6) H 06/27/18 05:02 Calcium 9.2 mg/dL (8.4-10.2) 06/26/18 11:37 Total Bilirubin 0.30 mg/dL (0.1-1.2) 06/26/18 11:37 AST 26 units/L (5-40) 06/26/18 11:37 ALT 17 units/L (7-56) 06/26/18 11:37 Alkaline Phosphatase 103 units/L (35-129) 06/26/18 11:37 Total Creatine Kinase 34 units/L (30-135) 06/26/18 11:37 CK-MB (CK-2) 2.0 ng/mL (0.0-4.0) 06/26/18 11:37 CK-MB (CK-2) Rel Index 5.8 (0-4) H 06/26/18 11:37 Troponin T 0.020 ng/mL (0.00-0.029) 06/26/18 11:37 Total Protein 7.3 g/dL (6.3-8.2) 06/26/18 11:37 Albumin 3.1 g/dL (3.9-5) L 06/26/18 11:37 Albumin/Globulin Ratio 0.7 % 06/26/18 11:37 Urine Color Straw (Yellow) 06/26/18 15:42 Urine Turbidity Clear (Clear) 06/26/18 15:42 Urine pH 6.0 (5.0-7.0) 06/26/18 15:42 Ur Specific [place] 1.005 (1.003-1.030) 06/26/18 15:42 Urine Protein 100 mg/dl mg/dL (Negative) 06/26/18 15:42 Urine Glucose (UA) >=500 mg/dL (Negative) 06/26/18 15:42 Urine Ketones Neg mg/dL (Negative) 06/26/18 15:42 Urine Blood Sm (Negative) 06/26/18 15:42 Urine Nitrite Neg (Negative) 06/26/18 15:42 Urine Bilirubin Neg (Negative) 06/26/18 15:42 Urine Urobilinogen < 2.0 mg/dL (<2.0) 06/26/18 15:42 Ur Leukocyte Esterase Neg (Negative) 06/26/18 15:42 Urine WBC (Auto) 1.0 /HPF (0.0-6.0) 06/26/18 15:42 Urine RBC (Auto) 1.0 /HPF (0.0-6.0) 06/26/18 15:42 U Epithel Cells (Auto) < 1.0 /HPF (0-13.0) 06/26/18 15:42 Active Medications - Current Medications Current Medications: Generic Name Dose Route Start Last Admin Trade Name Freq PRN Reason Stop Dose Admin Acetaminophen 650 mg 06/26/18 20:39 Tylenol PO Q4H PRN Pain MILD(1-3)/Fever >100.5/GALLEGOS Carvedilol 6.25 mg 06/26/18 22:00 06/27/18 21:37 Coreg PO 6.25 mg BID FLIP Administration Enoxaparin Sodium 40 mg 06/26/18 22:00 06/27/18 21:37 Lovenox SUB-Q 40 mg QDAY@2200 FLIP Administration Hydromorphone HCl 0.5 mg 06/26/18 20:39 Dilaudid IV Q3H PRN Pain , Severe (7-10) Sodium Chloride 500 mls @ 75 mls/hr 06/27/18 10:00 06/27/18 11:50 Nacl 0.45% IV 75 mls/hr DIRECT FLIP Administration Insulin Glargine 10 units 06/28/18 10:00 Lantus SUB-Q QAMDIAB FLIP Insulin Human Lispro 0 unit 06/26/18 22:00 06/28/18 08:21 Humalog SUB-Q 6 unit ACHS FLIP Administration Protocol Insulin Human Lispro 5 unit 06/27/18 07:30 06/28/18 08:21 Humalog SUB-Q 5 unit AC FLIP Administration Losartan Potassium 25 mg 06/26/18 21:00 06/27/18 10:36 Cozaar PO Not Given QDAY FLIP Ondansetron HCl 4 mg 06/26/18 20:39 Zofran IV Q8H PRN Nausea And Vomiting Oxycodone/Acetaminophen 1 tab 06/26/18 20:39 Percocet 5/325 PO Q6H PRN Pain, Moderate (4-6) Sodium Chloride 10 ml 06/26/18 22:00 06/27/18 21:38 Sodium Chloride Flush Syringe 10 Ml IV Not Given BID FLIP Sodium Chloride 10 ml 06/26/18 20:39 Sodium Chloride Flush Syringe 10 Ml IV PRN PRN LINE FLUSH
--- NOTE | 2018-06-28 11:56 | Consultation ---
History of Present Illness - Reason for Consult Consult date: 06/28/18 acute renal failure - History of Present Illness The patient is a 58 Yo female with history significant for Obesity, DM type 2, Dilated cardiomyopathy with EF 20-25%, Grade 3 diastolic dysfunction and Life vest at home who [facility] with c/o dizziness for about a week. Patient states she saw her Web Weaver on 06/26/18 who was noted to have low blood pressure. Patient was sent over to the ER for further evaluation and treatment. Patient also reports feeling weak, fatigued and dizzy on standing. She had one episode of N, V and D few days prior to presentation. Patient is also reports ongoing intermittent shortness of breath and chest heaviness. Patient denies fever, chills, abdominal pain, dyruria, hematuria, rash, syncope, jaundice or sick contact. Her BP has been low. The labs were significant for WBC 3, Sodium 133, Potassium 5.2, BUN 43, Creatinine 1.7 and Hemoglobin A1c 12.7%. Nephrology was consulted for further evaluation and treatment. Past History Past Medical History: diabetes, heart failure, hypertension Past Surgical History: Social history: denies: smoking, alcohol abuse, IV drug use Family history: denies: no significant family history Medications and Allergies Allergies Allergy/AdvReac Type Severity Reaction Status Date / Time Penicillins AdvReac Unknown Verified 06/26/18 09:45 Home Medications Medication Instructions Recorded Confirmed Last Taken Type Insulin Aspart [NovoLOG Flexpen] 5 units SQ AC 06/03/18 06/26/18 06/26/18 History Carvedilol [Coreg] 6.25 mg PO BID #60 tablet 06/07/18 06/26/18 06/25/18 Rx Furosemide [Lasix TAB] 40 mg PO QDAY #30 tablet 06/07/18 06/26/18 06/25/18 Rx Insulin Glargine [Lantus VIAL] 5 units SUB-Q QHS 30 Days units 06/07/18 06/26/18 06/25/18 Rx Losartan [Cozaar] 25 mg PO QDAY #30 tablet 06/07/18 06/26/18 06/25/18 Rx Spironolactone [Aldactone] 25 mg PO QDAY #30 tablet 06/07/18 06/26/18 06/25/18 Rx Active Meds: Active Medications Acetaminophen (Tylenol) 650 mg PO Q4H PRN PRN Reason: Pain MILD(1-3)/Fever >100.5/GALLEGOS Carvedilol (Coreg) 6.25 mg PO BID [facility] Last Admin: 06/28/18 11:12 Dose: Not Given Documented by: Heparin Sodium (Porcine) (Heparin) 5,000 unit SUB-Q Q12HR [facility] Hydromorphone HCl (Dilaudid) 0.5 mg IV Q3H PRN PRN Reason: Pain , Severe (7-10) Sodium Chloride (Nacl 0.45%) 500 mls @ 75 mls/hr IV DIRECT [facility] Last Admin: 06/27/18 11:50 Dose: 75 mls/hr Documented by: Insulin Glargine (Lantus) 10 units SUB-Q QAMDIAB [facility] Last Admin: 06/28/18 11:13 Dose: 10 units Documented by: Insulin Human Lispro (Humalog) 0 unit SUB-Q ACHS [facility]; Protocol Last Admin: 06/28/18 08:21 Dose: 6 unit Documented by: Insulin Human Lispro (Humalog) 5 unit SUB-Q AC [facility] Last Admin: 06/28/18 08:21 Dose: 5 unit Documented by: Losartan Potassium (Cozaar) 25 mg PO QDAY [facility] Last Admin: 06/28/18 11:12 Dose: Not Given Documented by: Ondansetron HCl (Zofran) 4 mg IV Q8H PRN PRN Reason: Nausea And Vomiting Oxycodone/Acetaminophen (Percocet 5/325) 1 tab PO Q6H PRN PRN Reason: Pain, Moderate (4-6) Sodium Chloride (Sodium Chloride Flush Syringe 10 Ml) 10 ml IV BID [facility] Last Admin: 06/28/18 11:14 Dose: 10 ml Documented by: Sodium Chloride (Sodium Chloride Flush Syringe 10 Ml) 10 ml IV PRN PRN PRN Reason: LINE FLUSH Review of Systems Constitutional: weight loss, fatigue, weakness, no weight gain, no fever, no chills, no anorexia, no poor appetite Breasts: deferred Cardiovascular: chest pain, edema, lightheadedness, shortness of breath, dyspnea on exertion, leg edema, decreased exercise tolerance, no orthopnea, no syncope Respiratory: shortness of breath, dyspnea on exertion, no cough, no hemoptysis Gastrointestinal: nausea, vomiting, diarrhea, no abdominal pain, no melena Genitourinary Female: no dysuria, no hematuria Rectal: no bleeding Musculoskeletal: no morning stiffness, no muscle cramps, no gait dysfunction Integumentary: no rash, no wounds Neurological: weakness, no paralysis, no seizures, no syncope, no convulsions, no aphasia, no change in speech, no confusion, no memory loss Exam - Vital Signs Vital signs: Vital Signs Temp Pulse Resp BP Pulse Ox 97.7 F 84 16 103/61 98 06/26/18 09:50 06/26/18 09:50 06/26/18 09:50 06/26/18 09:50 06/26/18 09:50 - General Appearance General appearance: well-developed, well-nourished, appears stated age, other (not in distress) EENT: ATNC, PERRL, mucous membranes moist, hearing intact, vision intact Neck: Present: neck supple, trachea midline Respiratory: Clear to Ascultation Heart: regular, S1S2, no murmurs Gastrointestinal: Present: normoactive bowel sounds. Absent: tenderness, distended Integumentary: no rash, warm and dry Neurologic: no focal deficit, no asterixis, alert and oriented x3 Musculoskeletal: Present: other (bilateral trace LE edema) Results - Lab Results 06/26/18 11:37 06/28/18 11:44 Most recent lab results Calcium 9.2 mg/dL (8.4-10.2) 06/26/18 11:37 - Image Kidney/bladder ultrasound: pending Assessment and Plan 1. Acute kidney injury: Suspect Vasomotor / hemodynamic MAXIMILIAN in the setting of hypotension. Will stop Losartan due to hypotension. Urine studies and Renal US pending. IV fluids as ordered. Monitor renal function. Renal prognosis is guarded. Avoid nephrotoxic agents. Meds dosage based on GFR. 2. FEN: Hyperkalemia, monitor. Suspected volume depletion, IV fluids. 3. Orthostatic hypotension: Monitor orthostatic. IV fluids. Hold BP meds. May need Midodrine. 4. Systolic CHF: Followed by cards. 5. DM uncontrolled.
[2018-06-28 12:26] LABS: Calcium 8.6 mg/dL (8.4-10.2)
[2018-06-28] MEDS ORDERED: NACL 0.45% 500 ML IV SCH (13:00)
--- NOTE | 2018-06-28 13:24 | Progress Note ---
Assessment and Plan 58 Female Hypotension/hyponatremia/Dizziness Overdiuresis continue holding diuretic/ARB/decrease coreg 3.125 Gentle hydration Hyponatremia improved/creatinine improved Patient's creatinine on last hospital admission was 1.0/discharge was 1.5 Renal following Acute on chronic kidney disease Dilated Cardiomyopathy EF 20-25% Chronic systolic heart failure Compensated Diabetes Poorly controlled most recent hemoglobin A1c 12.7 Subjective Date of service: 06/28/18 Principal diagnosis: Low BP and CHF Interval history: Patient's inability continues to complain of dizziness Objective Vital Signs Temp Pulse Resp BP Pulse Ox 06/28/18 11:12 89/53 06/28/18 09:40 97.8 F 80 18 102/59 100 06/28/18 03:51 97.6 F 77 16 123/56 97 06/27/18 23:24 97.5 F L 82 16 142/74 97 06/27/18 22:00 82 06/27/18 19:59 90 06/27/18 19:23 98.1 F 16 95/57 06/27/18 17:00 79 06/27/18 16:35 97.8 F 79 14 99/60 99 - Physical Examination HEENT: Positive: PERRL Neck: Positive: neck supple, trachea midline Cardiac: Positive: Reg Rate and Rhythm Lungs: Positive: Normal Exam, clear to auscultation Neuro: Positive: Grossly Intact Abdomen: Positive: Unremarkable, Soft, Active Bowel Sounds Skin: Negative: Rash, Suspicious Lesions Musculoskeletal: Normal Range of Motion Extremities: Present: normal, warm. Absent: edema - Labs and Meds Comprehensive Metabolic Panel 06/28/18 Range/Units 11:44 Sodium 138 (137-145) mmol/L Potassium 4.5 (3.6-5.0) mmol/L Chloride 102.5 (98-107) mmol/L Carbon Dioxide 26 (22-30) mmol/L BUN 38 H (7-17) mg/dL Creatinine 1.4 H (0.7-1.2) mg/dL Glucose 110 H (65-100) mg/dL Calcium 8.6 (8.4-10.2) mg/dL - Imaging and Cardiology Stress echo: report reviewed (myocardial perfusion scan 11/01: No evidence of significant myocardial ischemia or necrosis ) Echo: report reviewed (ECHO 02/01: EF 20-25%, grade III diastolic dysfunction)
--- NOTE | 2018-06-28 14:56 | Ultrasound Report ---
PROCEDURE: US RENAL BILAT TECHNIQUE: Transverse longitudinal sonograms obtained with francois scale sonography. HISTORY: ARF COMPARISONS: Chest CT June 03, 2018 FINDINGS: Right kidney measures 9.2 x 4.3 x 5.0 cm. Cortex 1.6 cm. Left kidney measures 8.5 x 4.3 x 4.7 cm. Cortex 1.6 cm. Kidneys demonstrate increased cortical echogenicity. No hydronephrosis. No calculus. No cyst or mass. Visualized bladder appears unremarkable. IMPRESSION: Kidneys demonstrate increased cortical echogenicity which can be seen with medical renal disease Left kidney is mildly atrophic No hydronephrosis This document is electronically signed by Ahmet Zamora MD., June 28 2018 02:54:41 PM ET
[2018-06-29 05:37] LABS: Hematocrit 37.2 % (30.3-42.9); Hemoglobin 12.3 gm/dl (10.1-14.3); Mean Corpuscular HGB Conc 33 % (30-34); Mean Corpuscular Volume 83 fl (79-97); Platelet Count 251 K/mm3 (140-440); Red Blood Count 4.49 M/mm3 (3.65-5.03); Red Cell Distribution Width 16.3 % (13.2-15.2)
[2018-06-29 06:00] LABS: Calcium 8.7 mg/dL (8.4-10.2)
--- NOTE | 2018-06-29 08:41 | Progress Note ---
Assessment and Plan 1. Acute kidney injury: Suspect Vasomotor / hemodynamic MAXIMILIAN in the setting of hypotension. Renal US was negative for hydro. IV fluids as ordered. Monitor renal function. Renal prognosis is guarded. Avoid nephrotoxic agents. Meds dosage based on GFR. 2. FEN: Hyperkalemia, kayexalate ordered. Suspected volume depletion, IV fluids. 3. Orthostatic hypotension: Symptomatically betetr. IV fluids. Hold BP meds. 4. Systolic CHF: Followed by cards. 5. DM uncontrolled. Subjective Date of service: 06/29/18 Principal diagnosis: Low BP and CHF Interval history: Patient was seen and examined at the bedside. Objective - Vital Signs Vital signs: Vital Signs - 12hr 06/28/18 06/28/18 06/29/18 21:48 22:00 00:10 Temperature 97.8 F Pulse Rate 89 87 79 Respiratory 16 Rate Blood Pressure 142/83 105/52 O2 Sat by Pulse 98 Oximetry 06/29/18 04:16 Temperature 97.7 F Pulse Rate 82 Respiratory 16 Rate Blood Pressure 127/62 O2 Sat by Pulse 97 Oximetry - General Appearance General appearance: well-developed, well-nourished, appears stated age, other (not in distress) EENT: ATNC, PERRL, mucous membranes moist, hearing intact, vision intact Neck: supple Respiratory: Present: Clear to Ascultation Cardiology: regular, S1S2, no murmurs Gastrointestinal: normoactive bowel sounds, no tenderness, no distended Integumentary: no rash, warm and dry Neurologic: no focal deficit, no asterixis, alert and oriented x3 Musculoskeletal: other (trace LE edema noted) Psychiatric: cooperative - Lab 06/30/18 04:58 06/30/18 04:58 Most recent lab results Calcium 8.7 mg/dL (8.4-10.2) 06/29/18 04:18 Medications & Allergies - Medications Allergies/Adverse Reactions: Allergies Penicillins Adverse Reaction (Verified 06/26/18 09:45) Unknown Home Medications: Home Medications Medication Instructions Recorded Confirmed Last Taken Type Furosemide [Lasix TAB] 40 mg PO Q48H #15 tablet 06/30/18 Unknown Rx Insulin Glargine [Lantus VIAL] 10 units SUB-Q QAMDIAB #1 vial 06/30/18 Unknown Rx Insulin Lispro [HumaLOG VIAL] 0 units SQ AC #1 vial 06/30/18 Unknown Rx Losartan [Cozaar] 12.5 mg PO QDAY 30 Days tablet 06/30/18 Unknown Rx Metoprolol Succinate 25 mg PO DAILY #30 tab.er.24h 06/30/18 Unknown Rx Active Medications: Generic Name Dose Route Start Last Admin Trade Name Freq PRN Reason Stop Dose Admin Acetaminophen 650 mg 06/26/18 20:39 Tylenol PO Q4H PRN Pain MILD(1-3)/Fever >100.5/GALLEGOS Carvedilol 3.125 mg 06/28/18 22:00 06/28/18 21:48 Coreg PO Not Given BID [facility] Heparin Sodium (Porcine) 5,000 unit 06/29/18 12:00 Heparin SUB-Q Q12HR FLIP Hydromorphone HCl 0.5 mg 06/26/18 20:39 Dilaudid IV Q3H PRN Pain , Severe (7-10) Insulin Glargine 10 units 06/28/18 10:00 06/28/18 11:13 Lantus SUB-Q 10 units QAMDIAB FLIP Administration Insulin Human Lispro 0 unit 06/26/18 22:00 06/28/18 21:46 Humalog SUB-Q 4 unit ACHS FLIP Administration Protocol Insulin Human Lispro 5 unit 06/27/18 07:30 06/28/18 17:30 Humalog SUB-Q Not Given AC [facility] Ondansetron HCl 4 mg 06/26/18 20:39 Zofran IV Q8H PRN Nausea And Vomiting Oxycodone/Acetaminophen 1 tab 06/26/18 20:39 Percocet 5/325 PO Q6H PRN Pain, Moderate (4-6) Sodium Chloride 10 ml 06/26/18 22:00 06/28/18 21:48 Sodium Chloride Flush Syringe 10 Ml IV 10 ml BID FLIP Administration Sodium Chloride 10 ml 06/26/18 20:39 Sodium Chloride Flush Syringe 10 Ml IV PRN PRN LINE FLUSH Sodium Polystyrene Sulfonate 30 gm 06/29/18 08:40 Kionex PO 06/29/18 08:41 ONCE ONE
[2018-06-29] MEDS ORDERED: KIONEX PO ONE (10:00)
[2018-06-29] MEDS: LANTUS SUB-Q SCH (10:16)
--- NOTE | 2018-06-29 10:23 | Progress Note ---
Assessment and Plan Assessment and plan: Patient is a 58 yo woman with a history of IDDM, hypertension, CHF and Dilated Cardiomyopathy with est EF 20-25% (per Cardiology because no ECHO in our EMR) who presented to [facility] ED with dizziness. She was found to have a WBC of 3.0, sodium 133 potassium, 5.2 BUNs 43 creatinine 1.7 glucose. Her hemoglobin A1c was 12.7. A head CT revealed periventricular white matter disease with chronic lacunar infarcts in both thalami. Chest x-ray did not reveal any infiltrates or effusions. An EKG revealed sinus rhythm with no acute changes. She was just discharged from here on 06/07/18 after treatment of CHF. Here Creatinine upon discharge was 1.7; however, her Creatinine on admission 06/05/18 was only 1.0. She was sent home on new diuretics. The dizziness is most likely from the hypotension and the hypotension/dehydration/ARF from diuretics. Yesterday, Cardiology gave her gentle hydration. -Hypotension/hyponatremia/Dizziness Likely secondary to over diuresis, Patient's creatinine on last hospital admission was 1.0 and at discharge was 1.7: Hold diuretics for now very complex medical decision because possible worsen CHF, -Acute Renal failure due to ATN, hypotension, and vasomotor nephropathy: Ordered renal u/s, consulted Nephrology, hold diuretics, treated with gentle iv fluids, -Dilated Cardiomyopathy EF 20-25% and Chronic systolic heart failure: Cardiology is following -Uncontrolled IDDM, hemoglobin A1c 12.7 counseling done, increased Lantus -Hyperkalemia mild: monitor closely, give dose of kayexalate and recheck in am -DVT/GI ppx reviewed full code Disposition: continue inpatient care, once bp stabilieze, potassium level normalizes and renal function stabilizes then d/c home, hopefully tomorrow. History Interval history: Patient was seen and examined. Follow-up on current diagnosis of ARF. Overnight uneventful. Patient denies any chest pain, shortness breath, nausea/vomiting or severe headaches. Imaging, nursing note, chart, labs and old chart reviewed. Discussed with patient. Hospitalist Physical - Physical exam Narrative exam: Gen: WDWN, NAD, Awake, Alert, Orientated HEENT: NCAT, EOMI, PERRL, OP Clear Neck: supple, no adenopathy, no thyromegaly, no JVD CVS/Heart: RRR, normal S1S2, pulses present bilaterally Chest/Lungs: CTA B, Symmetrical chest expansion, good air entry bilaterally GI/Abdomen: soft, NTND, good bowel sounds, no guarding or rebound /Bladder: no suprapubic tenderness, no CVA or paraspinal tenderness Extermity/Skin: no c/c/e, no obvious rash MSK: FROM x 4 Neuro: CN 2-12 grossly intact, no new focal deficits Psych: calm - Constitutional Vitals: Temp Pulse Resp BP Pulse Ox 97.7 F 82 16 127/62 97 06/29/18 04:16 06/29/18 04:16 06/29/18 04:16 06/29/18 04:16 06/29/18 04:16 General appearance: Present: no acute distress, well-nourished Results - Labs CBC & Chem 7: 06/29/18 04:18 06/29/18 04:18 Labs: Laboratory Last Values WBC 3.4 K/mm3 (4.5-11.0) L 06/29/18 04:18 RBC 4.49 M/mm3 (3.65-5.03) 06/29/18 04:18 Hgb 12.3 gm/dl (10.1-14.3) 06/29/18 04:18 Hct 37.2 % (30.3-42.9) 06/29/18 04:18 MCV 83 fl (79-97) 06/29/18 04:18 MCH 27 pg (28-32) L 06/29/18 04:18 MCHC 33 % (30-34) 06/29/18 04:18 RDW 16.3 % (13.2-15.2) H 06/29/18 04:18 Plt Count 251 K/mm3 (140-440) 06/29/18 04:18 Ford % (Auto) Actuarial Technician 06/26/18 11:37 Add Manual Diff Complete 06/26/18 11:37 Total Counted 100 06/26/18 11:37 Seg Neutrophils % Actuarial Technician 06/26/18 11:37 Seg Neuts % (Manual) 49.0 % (40.0-70.0) 06/26/18 11:37 Band Neutrophils % 0 % 06/26/18 11:37 Lymphocytes % (Manual) 32.0 % (13.4-35.0) 06/26/18 11:37 Reactive Lymphs % (Man) 2.0 % 06/26/18 11:37 Monocytes % (Manual) 16.0 % (0.0-7.3) H 06/26/18 11:37 Eosinophils % (Manual) 1.0 % (0.0-4.3) 06/26/18 11:37 Basophils % (Manual) 0 % (0.0-1.8) 06/26/18 11:37 Metamyelocytes % 0 % 06/26/18 11:37 Myelocytes % 0 % 06/26/18 11:37 Promyelocytes % 0 % 06/26/18 11:37 Blast Cells % 0 % 06/26/18 11:37 Nucleated RBC % Not Reportable 06/26/18 11:37 Seg Neutrophils # Man 1.5 K/mm3 (1.8-7.7) L 06/26/18 11:37 Band Neutrophils # 0.0 K/mm3 06/26/18 11:37 Lymphocytes # (Manual) 1.0 K/mm3 (1.2-5.4) L 06/26/18 11:37 Abs React Lymphs (Man) 0.1 K/mm3 06/26/18 11:37 Monocytes # (Manual) 0.5 K/mm3 (0.0-0.8) 06/26/18 11:37 Eosinophils # (Manual) 0.0 K/mm3 (0.0-0.4) 06/26/18 11:37 Basophils # (Manual) 0.0 K/mm3 (0.0-0.1) 06/26/18 11:37 Metamyelocytes # 0.0 K/mm3 06/26/18 11:37 Myelocytes # 0.0 K/mm3 06/26/18 11:37 Promyelocytes # 0.0 K/mm3 06/26/18 11:37 Blast Cells # 0.0 K/mm3 06/26/18 11:37 WBC Morphology Not Reportable 06/26/18 11:37 Hypersegmented Neuts Not Reportable 06/26/18 11:37 Hyposegmented Neuts Not Reportable 06/26/18 11:37 Hypogranular Neuts Not Reportable 06/26/18 11:37 Smudge Cells Not Reportable 06/26/18 11:37 Toxic Granulation Not Reportable 06/26/18 11:37 Toxic Vacuolation Not Reportable 06/26/18 11:37 Dohle Bodies Not Reportable 06/26/18 11:37 Pelger-Huet Anomaly Not Reportable 06/26/18 11:37 Beatriz Rods Not Reportable 06/26/18 11:37 Platelet Estimate Consistent w auto 06/26/18 11:37 Clumped Platelets Not Reportable 06/26/18 11:37 Plt Clumps, EDTA Not Reportable 06/26/18 11:37 Large Platelets Few 06/26/18 11:37 Giant Platelets Not Reportable 06/26/18 11:37 Platelet Satelliting Not Reportable 06/26/18 11:37 Plt Morphology Comment Not Reportable 06/26/18 11:37 RBC Morphology Not Reportable 06/26/18 11:37 Dimorphic RBCs Not Reportable 06/26/18 11:37 Polychromasia Not Reportable 06/26/18 11:37 Hypochromasia Not Reportable 06/26/18 11:37 Poikilocytosis Not Reportable 06/26/18 11:37 Anisocytosis 1+ 06/26/18 11:37 Microcytosis Not Reportable 06/26/18 11:37 Macrocytosis Not Reportable 06/26/18 11:37 Spherocytes Not Reportable 06/26/18 11:37 Pappenheimer Bodies Not Reportable 06/26/18 11:37 Sickle Cells Not Reportable 06/26/18 11:37 Target Cells Not Reportable 06/26/18 11:37 Tear Drop Cells Not Reportable 06/26/18 11:37 Ovalocytes Not Reportable 06/26/18 11:37 Helmet Cells Not Reportable 06/26/18 11:37 [place] Bodies Not Reportable 06/26/18 11:37 [place] Rings Not Reportable 06/26/18 11:37 Claudia Cells Not Reportable 06/26/18 11:37 Bite Cells Not Reportable 06/26/18 11:37 Crenated Cell Not Reportable 06/26/18 11:37 Elliptocytes Not Reportable 06/26/18 11:37 Acanthocytes (Spur) Not Reportable 06/26/18 11:37 Rouleaux Not Reportable 06/26/18 11:37 Hemoglobin C Crystals Not Reportable 06/26/18 11:37 Schistocytes Not Reportable 06/26/18 11:37 Malaria parasites Not Reportable 06/26/18 11:37 Patrick Bodies Not Reportable 06/26/18 11:37 Hem Pathologist Commnt No 06/26/18 11:37 Sodium 137 mmol/L (137-145) 06/29/18 04:18 Potassium 5.4 mmol/L (3.6-5.0) H 06/29/18 04:18 Chloride 101.2 mmol/L (98-107) 06/29/18 04:18 Carbon Dioxide 24 mmol/L (22-30) 06/29/18 04:18 Anion Gap 17 mmol/L 06/29/18 04:18 BUN 43 mg/dL (7-17) H 06/29/18 04:18 Creatinine 1.2 mg/dL (0.7-1.2) 06/29/18 04:18 Estimated GFR 56 ml/min 06/29/18 04:18 BUN/Creatinine Ratio 36 % 06/29/18 04:18 Glucose 167 mg/dL (65-100) H 06/29/18 04:18 POC Glucose 203 (70-105) H 06/29/18 08:16 Hemoglobin A1c 12.7 % (4-6) H 06/27/18 05:02 Calcium 8.7 mg/dL (8.4-10.2) 06/29/18 04:18 Total Bilirubin 0.30 mg/dL (0.1-1.2) 06/26/18 11:37 AST 26 units/L (5-40) 06/26/18 11:37 ALT 17 units/L (7-56) 06/26/18 11:37 Alkaline Phosphatase 103 units/L (35-129) 06/26/18 11:37 Total Creatine Kinase 34 units/L (30-135) 06/26/18 11:37 CK-MB (CK-2) 2.0 ng/mL (0.0-4.0) 06/26/18 11:37 CK-MB (CK-2) Rel Index 5.8 (0-4) H 06/26/18 11:37 Troponin T 0.020 ng/mL (0.00-0.029) 06/26/18 11:37 Total Protein 7.3 g/dL (6.3-8.2) 06/26/18 11:37 Albumin 3.1 g/dL (3.9-5) L 06/26/18 11:37 Albumin/Globulin Ratio 0.7 % 06/26/18 11:37 Urine Color Straw (Yellow) 06/26/18 15:42 Urine Turbidity Clear (Clear) 06/26/18 15:42 Urine pH 6.0 (5.0-7.0) 06/26/18 15:42 Ur Specific [place] 1.005 (1.003-1.030) 06/26/18 15:42 Urine Protein 100 mg/dl mg/dL (Negative) 06/26/18 15:42 Urine Glucose (UA) >=500 mg/dL (Negative) 06/26/18 15:42 Urine Ketones Neg mg/dL (Negative) 06/26/18 15:42 Urine Blood Sm (Negative) 06/26/18 15:42 Urine Nitrite Neg (Negative) 06/26/18 15:42 Urine Bilirubin Neg (Negative) 06/26/18 15:42 Urine Urobilinogen < 2.0 mg/dL (<2.0) 06/26/18 15:42 Ur Leukocyte Esterase Neg (Negative) 06/26/18 15:42 Urine WBC (Auto) 1.0 /HPF (0.0-6.0) 06/26/18 15:42 Urine RBC (Auto) 1.0 /HPF (0.0-6.0) 06/26/18 15:42 U Epithel Cells (Auto) < 1.0 /HPF (0-13.0) 06/26/18 15:42 Active Medications - Current Medications Current Medications: Generic Name Dose Route Start Last Admin Trade Name Freq PRN Reason Stop Dose Admin Acetaminophen 650 mg 06/26/18 20:39 Tylenol PO Q4H PRN Pain MILD(1-3)/Fever >100.5/GALLEGOS Carvedilol 3.125 mg 06/28/18 22:00 06/28/18 21:48 Coreg PO Not Given BID FLIP Heparin Sodium (Porcine) 5,000 unit 06/29/18 12:00 Heparin SUB-Q Q12HR FLIP Hydromorphone HCl 0.5 mg 06/26/18 20:39 Dilaudid IV Q3H PRN Pain , Severe (7-10) Insulin Glargine 10 units 06/28/18 10:00 06/28/18 11:13 Lantus SUB-Q 10 units QAMDIAB FLIP Administration Insulin Human Lispro 0 unit 06/26/18 22:00 06/28/18 21:46 Humalog SUB-Q 4 unit ACHS FLIP Administration Protocol Insulin Human Lispro 5 unit 06/27/18 07:30 06/28/18 17:30 Humalog SUB-Q Not Given AC [facility] Ondansetron HCl 4 mg 06/26/18 20:39 Zofran IV Q8H PRN Nausea And Vomiting Oxycodone/Acetaminophen 1 tab 06/26/18 20:39 Percocet 5/325 PO Q6H PRN Pain, Moderate (4-6) Sodium Chloride 10 ml 06/26/18 22:00 06/28/18 21:48 Sodium Chloride Flush Syringe 10 Ml IV 10 ml BID FLIP Administration Sodium Chloride 10 ml 06/26/18 20:39 Sodium Chloride Flush Syringe 10 Ml IV PRN PRN LINE FLUSH
[2018-06-29] MEDS: HumaLOG SUB-Q SCH ×7 (10:24→21:53)
--- NOTE | 2018-06-29 10:29 | Progress Note ---
Assessment and Plan 58 Female Hypotension/hyponatremia/Dizziness Overdiuresis continue holding diuretic cont low dose coreg and attempt to reintroduce low dose losartan Gentle hydration Hyponatremia improved/creatinine improved Patient's creatinine on last hospital admission was 1.0/discharge was 1.5 Renal following F/u echo Acute on chronic kidney disease Dilated Cardiomyopathy EF 20-25% F/u echo Chronic systolic heart failure Compensated Diabetes Poorly controlled most recent hemoglobin A1c 12.7 The patient has been seen in conjunction with Dr. Mireles who agrees with the assessment and plan of care. Subjective Date of service: 06/29/18 Principal diagnosis: Low BP and CHF Interval history: pt sitting up at bedside, states she feels okay right now, had some hypotension and dizziness yesterday evening and overnight. tele reviewed - in SR with occasional brief NSVT. Objective Last Vital Signs Temp 97.7 F 06/29/18 04:16 Pulse 82 06/29/18 04:16 Resp 16 06/29/18 04:16 BP 127/62 06/29/18 04:16 Pulse Ox 97 06/29/18 04:16 - Physical Examination General: No Apparent Distress HEENT: Positive: PERRL Neck: Positive: neck supple, trachea midline Cardiac: Positive: Reg Rate and Rhythm, S1/S2 Lungs: Positive: clear to auscultation Neuro: Positive: Grossly Intact Abdomen: Positive: Unremarkable, Soft, Active Bowel Sounds Skin: Negative: Rash, Suspicious Lesions Musculoskeletal: Normal Range of Motion Extremities: Present: normal, warm. Absent: edema - Labs and Meds CBC 06/29/18 Range/Units 04:18 WBC 3.4 L (4.5-11.0) K/mm3 RBC 4.49 (3.65-5.03) M/mm3 Hgb 12.3 (10.1-14.3) gm/dl Hct 37.2 (30.3-42.9) % Plt Count 251 (140-440) K/mm3 Comprehensive Metabolic Panel 06/28/18 06/29/18 Range/Units 11:44 04:18 Sodium 138 137 (137-145) mmol/L Potassium 4.5 5.4 H (3.6-5.0) mmol/L Chloride 102.5 101.2 (98-107) mmol/L Carbon Dioxide 26 24 (22-30) mmol/L BUN 38 H 43 H (7-17) mg/dL Creatinine 1.4 H 1.2 (0.7-1.2) mg/dL Glucose 110 H 167 H (65-100) mg/dL Calcium 8.6 8.7 (8.4-10.2) mg/dL - Imaging and Cardiology Stress echo: report reviewed (myocardial perfusion scan 11/01: No evidence of significant myocardial ischemia or necrosis ) Echo: report reviewed (ECHO 02/01: EF 20-25%, grade III diastolic dysfunction)
[2018-06-29 11:53] LABS: Protein/Creatinine Ratio,Urine 1.16
[2018-06-29] MEDS: COREG PO SCH ×2 (12:39→21:52)
[2018-06-29] MEDS: SODIUM CHLORIDE FLUSH SYRINGE 10 ML IV SCH ×2 (12:41→21:54)
[2018-06-29] MEDS: COZAAR PO SCH (15:58)
[2018-06-29] MEDS: HEPARIN SUB-Q SCH ×2 (18:07→21:52)
[2018-06-30 06:24] LABS: Hematocrit 37.3 % (30.3-42.9); Hemoglobin 12.3 gm/dl (10.1-14.3); Mean Corpuscular HGB Conc 33 % (30-34); Mean Corpuscular Volume 83 fl (79-97); Platelet Count 259 K/mm3 (140-440); Red Blood Count 4.48 M/mm3 (3.65-5.03); Red Cell Distribution Width 16.5 % (13.2-15.2)
[2018-06-30 06:36] LABS: Calcium 8.1 mg/dL (8.4-10.2)
[2018-06-30] MEDS: HumaLOG SUB-Q SCH ×4 (07:30→14:38)
--- NOTE | 2018-06-30 08:34 | Progress Note ---
Assessment and Plan 1. Acute kidney injury: Suspect Vasomotor / hemodynamic MAXIMILIAN in the setting of hypotension. Renal US was negative for hydro. Renal function is better. Monitor renal function. Avoid nephrotoxic agents. Meds dosage based on GFR. 2. FEN: Hyperkalemia, improved. Suspected volume depletion, hold diuretics. 3. Orthostatic hypotension: Symptomatically better. IV fluids. Hold BP meds. 4. Systolic CHF: Followed by cards. 5. DM uncontrolled. F/u with me in 1-2 weeks. Subjective Date of service: 06/30/18 Principal diagnosis: Low BP and CHF Interval history: Patient was seen and examined at the bedside. Feeling better. Objective - Vital Signs Vital signs: Vital Signs - 12hr 06/29/18 06/29/18 06/30/18 22:00 23:17 04:13 Temperature 98.2 F 97.7 F Pulse Rate 81 92 H 86 Respiratory 12 14 Rate Blood Pressure 121/68 135/84 O2 Sat by Pulse 99 98 Oximetry - General Appearance General appearance: well-developed, well-nourished, appears stated age, other (not in distress) EENT: ATNC, PERRL, mucous membranes moist, hearing intact, vision intact Neck: supple Respiratory: Present: Clear to Ascultation Cardiology: regular, S1S2, no murmurs Gastrointestinal: normoactive bowel sounds, no tenderness, no distended Integumentary: no rash, warm and dry Neurologic: no focal deficit, no asterixis, alert and oriented x3 Musculoskeletal: other (trace LE edema noted) - Lab 06/30/18 04:58 06/30/18 04:58 Most recent lab results Calcium 8.1 mg/dL (8.4-10.2) L 06/30/18 04:58 Urine Creatinine 70.0 mg/dL (0.1-20.0) H 06/29/18 06:50 Urine Sodium 57 mmol/L 06/29/18 06:50 Urine Total Protein 81 mg/dL (5-11.8) H 06/29/18 06:50 Medications & Allergies - Medications Allergies/Adverse Reactions: Allergies Penicillins Adverse Reaction (Verified 06/26/18 09:45) Unknown Home Medications: Home Medications Medication Instructions Recorded Confirmed Last Taken Type Furosemide [Lasix TAB] 40 mg PO Q48H #15 tablet 06/30/18 Unknown Rx Insulin Glargine [Lantus VIAL] 10 units SUB-Q QAMDIAB #1 vial 06/30/18 Unknown Rx Insulin Lispro [HumaLOG VIAL] 0 units SQ AC #1 vial 06/30/18 Unknown Rx Losartan [Cozaar] 12.5 mg PO QDAY 30 Days tablet 06/30/18 Unknown Rx Metoprolol Succinate 25 mg PO DAILY #30 tab.er.24h 06/30/18 Unknown Rx Active Medications: Generic Name Dose Route Start Last Admin Trade Name Freq PRN Reason Stop Dose Admin Acetaminophen 650 mg 06/26/18 20:39 Tylenol PO Q4H PRN Pain MILD(1-3)/Fever >100.5/GALLEGOS Carvedilol 3.125 mg 06/28/18 22:00 06/29/18 21:52 Coreg PO Not Given BID [facility] Heparin Sodium (Porcine) 5,000 unit 06/29/18 12:00 06/29/18 21:52 Heparin SUB-Q 5,000 unit Q12HR FLIP Administration Hydromorphone HCl 0.5 mg 06/26/18 20:39 Dilaudid IV Q3H PRN Pain , Severe (7-10) Insulin Glargine 10 units 06/28/18 10:00 06/29/18 10:16 Lantus SUB-Q 10 units QAMDIAB FLIP Administration Insulin Human Lispro 0 unit 06/26/18 22:00 06/29/18 21:53 Humalog SUB-Q 2 unit ACHS FLIP Administration Protocol Insulin Human Lispro 5 unit 06/27/18 07:30 06/29/18 18:07 Humalog SUB-Q Not Given [facility] Losartan Potassium 12.5 mg 06/29/18 12:00 06/29/18 15:58 Cozaar PO Not Given QDAY FLIP Ondansetron HCl 4 mg 06/26/18 20:39 Zofran IV Q8H PRN Nausea And Vomiting Oxycodone/Acetaminophen 1 tab 06/26/18 20:39 Percocet 5/325 PO Q6H PRN Pain, Moderate (4-6) Sodium Chloride 10 ml 06/26/18 22:00 06/29/18 21:54 Sodium Chloride Flush Syringe 10 Ml IV 10 ml BID FLIP Administration Sodium Chloride 10 ml 06/26/18 20:39 Sodium Chloride Flush Syringe 10 Ml IV PRN PRN LINE FLUSH
--- NOTE | 2018-06-30 10:13 | Progress Note ---
Assessment and Plan 58 Female Hypotension/hyponatremia/Dizziness Overdiuresis Continue holding diuretic D/c coreg at this time and cont low dose losartan Acute on chronic kidney disease Dilated Cardiomyopathy EF 20-25% Echo reviewed - EF 25-30% LifeVest in place Chronic systolic heart failure Compensated Diabetes Poorly controlled most recent hemoglobin A1c 12.7 D/c coreg and diuretic at this time and cont low dose losartan. Pending BPs remain WNL, pt may discharge home from cardiology standpoint this afternoon. Recommend pt follow up in our office with Dr. Fields within 3-5 days of hospital discharge ([phone]). Also, pt is scheduled to follow up with Dr. Guzman on 07/06/2018 @ 3:15PM for eval of AICD candidacy. The patient has been seen in conjunction with Dr. Bashir Hinojosa who agrees with the assessment and plan of care. Subjective Date of service: 06/30/18 Principal diagnosis: Low BP and CHF Interval history: pt sitting up at bedside, states she feels much better today, BPs improving, coreg was held overnight. tele reviewed - in SR with occasional brief NSVT. Objective Last Vital Signs Temp 97.7 F 06/30/18 04:13 Pulse 86 06/30/18 04:13 Resp 14 06/30/18 04:13 BP 135/84 06/30/18 04:13 Pulse Ox 98 06/30/18 04:13 - Physical Examination General: No Apparent Distress HEENT: Positive: PERRL Neck: Positive: neck supple, trachea midline Cardiac: Positive: Reg Rate and Rhythm, S1/S2 Lungs: Positive: Decreased Breath Sounds Neuro: Positive: Grossly Intact Abdomen: Positive: Unremarkable, Soft, Active Bowel Sounds Skin: Negative: Rash, Suspicious Lesions Musculoskeletal: Normal Range of Motion Extremities: Present: normal, warm. Absent: edema - Labs and Meds CBC 06/30/18 Range/Units 04:58 WBC 3.0 L (4.5-11.0) K/mm3 RBC 4.48 (3.65-5.03) M/mm3 Hgb 12.3 (10.1-14.3) gm/dl Hct 37.3 (30.3-42.9) % Plt Count 259 (140-440) K/mm3 Comprehensive Metabolic Panel 06/30/18 Range/Units 04:58 Sodium 138 (137-145) mmol/L Potassium 4.6 (3.6-5.0) mmol/L Chloride 101.9 (98-107) mmol/L Carbon Dioxide 24 (22-30) mmol/L BUN 44 H (7-17) mg/dL Creatinine 1.3 H (0.7-1.2) mg/dL Glucose 136 H (65-100) mg/dL Calcium 8.1 L (8.4-10.2) mg/dL - Imaging and Cardiology Stress echo: report reviewed (myocardial perfusion scan 11/01: No evidence of significant myocardial ischemia or necrosis ) Echo: report reviewed (ECHO 02/01: EF 20-25%, grade III diastolic dysfunction)
[2018-06-30] MEDS: HEPARIN SUB-Q SCH (10:39)
[2018-06-30] MEDS: LANTUS SUB-Q SCH (10:39)
[2018-06-30] MEDS: COZAAR PO SCH (10:40)
[2018-06-30] MEDS: SODIUM CHLORIDE FLUSH SYRINGE 10 ML IV SCH (10:40)
--- NOTE | 2018-06-30 11:31 | Discharge Summary ---
Providers - Providers Date of Admission: 06/26/18 12:55 Attending physician: CHADD EMERY MD 06/27/18 06:30 Consult to Physician [CONS] Routine Comment: Consulting Provider: ELYSIA BLACKMAN Physician Instructions: Reason For Exam: Hypotension/CHF 06/28/18 11:22 Consult to Physician [CONS] Routine Comment: Consulting Provider: MARGIE LINDSEY Physician Instructions: Reason For Exam: ARF Primary care physician: CARMEN DAVIS [facility]- Hospitalization Condition: Critical Pertinent studies: CT head; no acute intracranial process CXR: lungs clear, mild cardiomegaly Renal US; medical renal disease, no hydronephrosis Hospital course: 58-year-old woman who was sent to the emergency room by her environmental geologist when she was noted to have low blood pressure Diagnoses Acute on chronic kidney injury, vasomotor nephropathy, has stage 2 kidney failure at baseline Type 2 diabetes of persistent hyperglycemia, A1c 12.7 Heart failure, chronic systolic, EF 25% Hypertension Relative hypotension Hyperkalemia Transient autonomic imbalance Dizziness/giddiness Hospital course -The patient's hypotension and dizziness and acute kidney failure, most likely due to overaggressive diuresis. -Diuretics were held after which the patient clinically improved, her kidney function improved. She received Kayexalate for hyperkalemia which resolved, aldactone was dc -Diabetes is very poorly controlled, therefore her insulin were optimized -She was co-managed by cardiology and nephrology through her hospital stay Disposition: DC-01 TO HOME OR SELFCARE Time spent for discharge: 33 mins Core Measure Documentation - Palliative Care Palliative Care/ Comfort Measures: Not Applicable - Core Measures Any of the following diagnoses?: heart failure - Heart Failure Discharge Requirements JASON/ARB for LVSD if EF <40%: Yes Beta gaby at discharge: Yes Exam - Constitutional Vitals: Temp Pulse Resp BP Pulse Ox 97.9 F 83 18 110/64 100 06/30/18 10:33 06/30/18 10:33 06/30/18 10:33 06/30/18 10:33 06/30/18 10:33 General appearance: Present: no acute distress, well-nourished - EENT Eyes: Present: PERRL ENT: hearing intact, clear oral mucosa - Neck Neck: Present: supple, normal ROM - Respiratory Respiratory effort: normal Respiratory: bilateral: CTA - Cardiovascular Heart Sounds: Present: S1 & S2. Absent: rub, click - Extremities Extremities: pulses symmetrical, No edema Peripheral Pulses: within normal limits - Abdominal General gastrointestinal: Present: soft, non-tender, non-distended, normal bowel sounds Female genitourinary: Present: normal - Integumentary Integumentary: Present: clear, warm, dry - Musculoskeletal Musculoskeletal: gait normal, strength equal bilaterally - Psychiatric Psychiatric: appropriate mood/affect, intact judgment & insight - Neurologic Neurologic: CNII-XII intact, moves all extremities Plan Follow up with: CARMEN DAVIS FNP-BC [Primary Care Provider] - 3-5 Days Prescriptions: Losartan [Cozaar] 12.5 mg PO QDAY 30 Days tablet Insulin Lispro [HumaLOG VIAL] 0 units SQ AC #1 vial Insulin Glargine [Lantus VIAL] 10 units SUB-Q QAMDIAB #1 vial Furosemide [Lasix TAB] 40 mg PO Q48H #15 tablet Metoprolol Succinate 25 mg PO DAILY #30 tab.er.24h
[2018-06-30 17:56] VITALS: BP 143/83
== END 2018-06-30 16:32 | disposition home or self-care (01) | DRG 73 ==
LOC: ED 09:44 → 4A 12:55
PROVIDERS: ADMIT Internal Medicine; ATTEND Internal Medicine
DX: G90.8 Other disorders of autonomic nervous system (principal); N17.0 Acute kidney failure with tubular necrosis; E87.1 Hypo-osmolality and hyponatremia; I50.22 Chronic systolic (congestive) heart failure; I13.0 Hypertensive heart and chronic kidney disease with heart failure and stage 1 through stage 4 chronic kidney disease, or unspecified chronic kidney disease; I42.0 Dilated cardiomyopathy; I95.2 Hypotension due to drugs; E11.65 Type 2 diabetes mellitus with hyperglycemia; N18.2 Chronic kidney disease, stage 2 (mild); E87.5 Hyperkalemia; T50.2X5A Adverse effect of carbonic-anhydrase inhibitors, benzothiadiazides and other diuretics, initial encounter; E11.22 Type 2 diabetes mellitus with diabetic chronic kidney disease; Y92.89 Other specified places as the place of occurrence of the external cause; Z79.4 Long term (current) use of insulin; Z88.0 Allergy status to penicillin; Z79.899 Other long term (current) drug therapy
CPT/HCPCS: 36415; 70450; 71045; 76770; 80048; 80053; 81001; 82550; 82553; 82570; 82962; 83036; 84156; 84300; 84484; 85007; 85025; 85027; 87116; 93005; 93010; 93306; G0378; J1644; J1650; J1815; J7040

== ENCOUNTER 2019-02-10 15:41 | Emergency (ER) | payer MEDICARE ==
--- NOTE | 2019-02-10 16:10 | Event Note ---
ED Screening Note Date of service: 02/10/19 Time: 16:06 ED Screening Note: This is a 59 y.o. F. that presents to the ER with cough, congestion, and chest discomfort for 1 week. PMH of HTN, CHF, DM2, Life Vest Taking mucinex without relief. This initial assessment/diagnostic orders/clinical plan/treatment(s) is/are subject to change based on patients health status, clinical progression and re- assessment by fellow clinical providers in the ED. Further treatment and workup at subsequent clinical providers discretion. Patient/guardian urged not to elope from the ED as their condition may be serious if not clinically assessed and managed. Initial orders include: CXR
--- NOTE | 2019-02-10 17:15 | XRay Report ---
CHEST 2 VIEWS INDICATION / CLINICAL INFORMATION: cough. COMPARISON: Chest radiograph 06/26/2018 FINDINGS: SUPPORT DEVICES: External cardiac defibrillator device in place. HEART / MEDIASTINUM: Stable borderline cardiomegaly. LUNGS / PLEURA: No significant pulmonary or pleural abnormality. No pneumothorax. ADDITIONAL FINDINGS: No significant additional findings. IMPRESSION: 1. Stable borderline cardiomegaly. No acute cardiopulmonary abnormality identified. Signer Name: Melisa Novak MD Signed: 02/10/2019 5:10 PM Workstation Name: [id number]
[2019-02-10 17:19] LABS: Basophils % (Auto) 0.4 % (0.0-1.8); Eosinophils # (Auto) 0.1 K/mm3 (0.0-0.4); Eosinophils % (Auto) 1.6 % (0.0-4.3); Hematocrit 36.8 % (30.3-42.9); Hemoglobin 11.9 gm/dl (10.1-14.3); Lymphocytes # (Auto) 0.9 K/mm3 (1.2-5.4); Lymphocytes % (Auto) 28.2 % (13.4-35.0); Mean Corpuscular HGB Conc 32 % (30-34); Mean Corpuscular Volume 84 fl (79-97); Monocytes # (Auto) 0.3 K/mm3 (0.0-0.8); Platelet Count 248 K/mm3 (140-440); Red Blood Count 4.39 M/mm3 (3.65-5.03); Red Cell Distribution Width 15.9 % (13.2-15.2)
--- NOTE | 2019-02-10 17:20 | Emergency Department Report ---
ED General Adult HPI - General Chief complaint: Chest Pain Stated complaint: SOB Time Seen by Provider: 02/10/19 16:06 Source: patient, RN notes reviewed, old records reviewed Mode of arrival: Ambulatory Limitations: No Limitations - History of Present Illness Initial comments: Primary care provider: Nurse practitioner Martina Thompson Cardiology: Dr. Ancelmo Blackman Past medical history: Congestive heart failure, ejection fraction 25%, history of hypotension, transient autonomic imbalance, renal insufficiency, vasomotor nephropathy, type 2 diabetes with persistent hyperglycemia, recent hemoglobin A1c 12.7, currently has outpatient LifeVest and This is a 59-year-old female. This patient is not known to this provider previously. Patient presents to the ER with a complaint of fluid overload. She describes lower extremity swelling which is painless, chest tightness and congestion, "gurgling", present for one week. She denies DVT and pulmonary embolism risk factors. She reports intermittent compliance with her Lasix therapy. She reports that when she was recently admitted to this hospital in June, she was on high-dose diuretics, and as per review of old medical records, was found to have vasomotor nephropathy, likely secondary to overzealous diuresis. She is prescribed 80 mg Lasix daily, but reports that she typically takes 40 mg. Over the past week, she has mostly taken 40 mg daily, missed 1 dose this past Friday. She believes that she may taken 80 mg on Friday. She makes no complaint of dietary indiscretions. She typically sleeps on 3 pillows, and now sleeping on 4-5-6 pillows. -: Gradual, days(s) Location: chest, left, right, lower extremity Consistency: intermittent Improves with: rest Worsens with: movement - Related Data Home Medications Medication Instructions Recorded Confirmed Last Taken Losartan [Cozaar] 50 mg PO QDAY 02/10/19 02/10/19 Unknown Metoprolol Xl [Metoprolol 100 mg PO QDAY 02/10/19 02/10/19 Unknown SUCCINATE ER TAB] Potassium Chloride [K-Dur] 20 meq PO QDAY 02/10/19 02/10/19 Unknown Previous Rx's Medication Instructions Recorded Last Taken Type Furosemide [Lasix TAB] 40 mg PO Q48H #15 tablet 06/30/18 Unknown Rx Insulin Glargine [Lantus VIAL] 10 units SUB-Q QAMDIAB #1 vial 06/30/18 Unknown Rx Insulin Lispro [HumaLOG VIAL] 0 units SQ AC #1 vial 06/30/18 Unknown Rx Furosemide [Lasix] 20 mg PO QHS #7 tablet 02/10/19 Unknown Rx Allergies Allergy/AdvReac Type Severity Reaction Status Date / Time Penicillins AdvReac Unknown Verified 06/26/18 09:45 ED Review of Systems ROS: Stated complaint: SOB Other details as noted in HPI Constitutional: malaise. denies: fever Eyes: denies: eye discharge ENT: congestion Respiratory: shortness of breath, wheezing Cardiovascular: edema Gastrointestinal: vomiting. denies: hematemesis, melena, hematochezia Genitourinary: denies: dysuria Musculoskeletal: myalgia Skin: denies: lesions Neurological: weakness ED Past Medical Hx - Past Medical History Hx Congestive Heart Failure: Yes (zoll life vest) Hx Diabetes: Yes Hx Asthma: No Hx COPD: No - Surgical History Additional Surgical History: C section - Social History Smoking Status: Never Smoker Substance Use Type: Alcohol - Medications Home Medications: Home Medications Medication Instructions Recorded Confirmed Last Taken Type Furosemide [Lasix TAB] 40 mg PO Q48H #15 tablet 06/30/18 02/10/19 Unknown Rx Insulin Glargine [Lantus VIAL] 10 units SUB-Q QAMDIAB #1 vial 06/30/18 02/10/19 Unknown Rx Insulin Lispro [HumaLOG VIAL] 0 units SQ AC #1 vial 06/30/18 02/10/19 Unknown Rx Furosemide [Lasix] 20 mg PO QHS #7 tablet 02/10/19 Unknown Rx Losartan [Cozaar] 50 mg PO QDAY 02/10/19 02/10/19 Unknown History Metoprolol Xl [Metoprolol 100 mg PO QDAY 02/10/19 02/10/19 Unknown History SUCCINATE ER TAB] Potassium Chloride [K-Dur] 20 meq PO QDAY 02/10/19 02/10/19 Unknown History ED Physical Exam - General Limitations: No Limitations General appearance: alert, in no apparent distress - Head Head exam: Present: atraumatic, normocephalic - Eye Eye exam: Present: normal appearance, EOMI. Absent: nystagmus - ENT ENT exam: Present: normal exam, normal orophraynx, mucous membranes moist, normal external ear exam - Neck Neck exam: Present: normal inspection, full ROM. Absent: tenderness, me ningismus - Respiratory Respiratory exam: Present: rales (patient has very faint rales at the bilateral lung bases.). Absent: respiratory distress, wheezes, rhonchi, stridor - Cardiovascular Cardiovascular Exam: Present: regular rate, normal rhythm, normal heart sounds, JVD (2-3 cm of jugular venous distention bilaterally). Absent: bradycardia, tachycardia, irregular rhythm, systolic murmur, diastolic murmur, rubs, gallop - GI/Abdominal GI/Abdominal exam: Present: soft. Absent: distended, tenderness, guarding, rebound, rigid, pulsatile mass - Extremities Exam Extremities exam: Present: normal inspection, full ROM, pedal edema, other (3+ pitting edema in the bilateral lower extremities). Absent: calf tenderness (there is no palpable cord. There is negative Homans sign.) - Back Exam Back exam: Present: normal inspection. Absent: tenderness, CVA tenderness (R), CVA tenderness (L), paraspinal tenderness, vertebral tenderness - Neurological Exam Neurological exam: Present: alert, oriented X3, other (there is no facial droop. The tongue is midline. Extraocular movements are intact bilaterally. Patient speaking in full complete sentences. Shoulder shrug is intact bilaterally. Hearing is grossly intact bilaterally. Visual acuity intact to finger counting and color perception at a close distance. 5/5 strength 4 extremities. Sensation intact to light touch in 4 extremities.). Absent: motor sensory deficit - Psychiatric Psychiatric exam: Present: normal affect, normal mood - Skin Skin exam: Present: warm, dry, intact, normal color. Absent: rash ED Course Vital Signs 02/10/19 02/10/19 02/10/19 16:06 17:45 18:00 Temperature 98.2 F Pulse Rate 80 78 Respiratory 20 9 L 19 Rate Blood Pressure 165/82 167/91 Blood Pressure [Left] O2 Sat by Pulse 97 95 97 Oximetry 02/10/19 19:10 Temperature 97.9 F Pulse Rate 81 Respiratory 18 Rate Blood Pressure Blood Pressure 170/91 [Left] O2 Sat by Pulse 97 Oximetry - Reevaluation(s) Reevaluation #1: 02/10/19 17:53 Differential diagnosis, including not limited to: Pneumonia, bronchitis, congestive heart failure, fluid overload Assessment and plan: 59-year-old female with history of congestive heart failure, with complaint of cough, lower extremity edema, congestion, has very faint rales in her lung bases, suspect mild exacerbation of chronic congestive heart failure. During my history and physical, she was able to speak in complete sentences, saturating at 95-97% on room air, and we placed the patient in a supine position, she was able to speak in complete sentences, without significant respiratory distress. A troponin was sent prior to my evaluation personally, I personally would not have ordered this test, and it was negative. Furthermore, given that symptoms are present for one week, this is unlikely to be an atypical manifestation of acute coronary syndrome. Rather, this is most likely a congestive heart failure exacerbation. The patient denies dietary indiscretions, and she also denies DVT and pulmonary embolism risk factors. Her EKG is unchanged from prior. We will contact her private outpatient carpet winder. She reports that she supposed to have follow-up with her carpet winder next month. I think it would be reasonable to transiently increase her dose of diuretics, and insure close outpatient follow-up with her carpet winder. Reevaluation #2: 02/10/19 17:57 Hyperglycemia reviewed and appreciated. Not consistent with diabetic ketoacidosis. Does not have anion gap. His documented history of hyperg lycemia, and poor dietary compliance. She'll be given intravenous insulin. Reevaluation #3: 02/10/19 18:03 Discussed case with consulting cardiology, Dr. Lars Temple, who also agrees that patient suitable for trial of outpatient management. Indicates patient can follow-up in the office early next week. Is in agreement with Lasix 40 mg every morning, 20 mg every afternoon. Reevaluation #4: 02/10/19 19:28 Accu-Chek improved. Feels improved. No significant respiratory distress at this time. Patient suitable for a trial of outpatient management at this time. We discussed diet and lifestyle modifications, and medication compliance. ED Medical Decision Making - Lab Data Result diagrams: 02/10/19 16:45 02/10/19 16:45 Vital Signs 02/10/19 02/10/19 16:06 17:45 Temperature 98.2 F Pulse Rate 80 78 Respiratory 20 9 L Rate Blood Pressure 165/82 167/91 O2 Sat by Pulse 97 95 Oximetry Lab Results 11/27/19 11/27/19 Range/Units 16:45 16:45 WBC 3.2 L (4.5-11.0) K/mm3 RBC 4.39 (3.65-5.03) M/mm3 Hgb 11.9 (10.1-14.3) gm/dl Hct 36.8 (30.3-42.9) % MCV 84 (79-97) fl MCH 27 L (28-32) pg MCHC 32 (30-34) % RDW 15.9 H (13.2-15.2) % Plt Count 248 (140-440) K/mm3 Lymph % (Auto) 28.2 (13.4-35.0) % Desha % (Auto) 10.0 H (0.0-7.3) % Eos % (Auto) 1.6 (0.0-4.3) % Baso % (Auto) 0.4 (0.0-1.8) % Lymph # 0.9 L (1.2-5.4) K/mm3 Desha # 0.3 (0.0-0.8) K/mm3 Eos # 0.1 (0.0-0.4) K/mm3 Baso # 0.0 (0.0-0.1) K/mm3 Seg Neutrophils % 59.8 (40.0-70.0) % Seg Neutrophils # 1.9 (1.8-7.7) K/mm3 Sodium 136 L (137-145) mmol/L Potassium 4.1 (3.6-5.0) mmol/L Chloride 100.5 (98-107) mmol/L Carbon Dioxide 25 (22-30) mmol/L Anion Gap 15 mmol/L BUN 21 H (7-17) mg/dL Creatinine 1.2 (0.7-1.2) mg/dL Estimated GFR 56 ml/min BUN/Creatinine Ratio 18 % Glucose 461 H (65-100) mg/dL Calcium 8.6 (8.4-10.2) mg/dL Magnesium 1.80 (1.7-2.3) mg/dL Total Bilirubin 0.80 (0.1-1.2) mg/dL AST 18 (5-40) units/L ALT 16 (7-56) units/L Alkaline Phosphatase 128 (35-129) units/L Total Creatine Kinase 54 (30-135) units/L Troponin T < 0.010 (0.00-0.029) ng/mL NT-Pro-B Natriuret Pep 8516 H (0-900) pg/mL Total Protein 6.9 (6.3-8.2) g/dL Albumin 3.1 L (3.9-5) g/dL Albumin/Globulin Ratio 0.8 % - EKG Data -: EKG Interpreted by Md EKG shows normal: sinus rhythm Rate: normal - EKG Data 02/10/19 17:55 The EKG shows a sinus rhythm, 88 beats for minute, normal axis, QTC is pro longed, there is poor R-wave progression, EKG is abnormal, it is not consistent with a STEMI. The EKG is unchanged from prior EKG 06/29/2018. - Radiology Data Radiology results: report reviewed, image reviewed Print Report Referring Physician: ALEJANDRA MCCARTNEY Patient Name: BEIT COX Date of : 1960 Sex: Female Report Date: 2019-02-10 Report Status: Finalized Findings [facility] [address] [place] [address] XRay Report Signed Patient: BETI COX MR#: [id number] : 1960 Acct:[id number] Age/Sex: 59 / F ADM Date: 02/10/19 Loc: ED Attending Dr: Ordering Physician: AYESHA ARGUELLO Date of Service: 02/10/19 Procedure(s): XR chest routine 2V Accession Number(s): [id number] cc: AYESHA ARGUELLO Fluoro Time In Minutes: CHEST 2 VIEWS INDICATION / CLINICAL INFORMATION: cough. COMPARISON: Chest radiograph 06/26/2018 FINDINGS: SUPPORT DEVICES: External cardiac defibrillator device in place. HEART / MEDIASTINUM: Stable borderline cardiomegaly. LUNGS / PLEURA: No significant pulmonary or pleural abnormality. No pneumothorax. ADDITIONAL FINDINGS: No significant additional findings. IMPRESSION: 1. Stable borderline cardiomegaly. No acute cardiopulmonary abnormality identified. Signer Name: Melisa Novak MD Signed: 02/10/2019 5:10 PM Workstation Name: [id number] Transcribed By: HRC Dictated By: Melisa Novak MD Electronically Authenticated By: Melisa Novak MD Signed Date/Time: 02/10/19 1710 Critical care attestation.: If time is entered above; I have spent that time in minutes in the direct care of this critically ill patient, excluding procedure time. ED Disposition Clinical Impression: Lower extremity edema, Medical non-compliance, SOB (shortness of breath), Hyperglycemia Disposition: DC-01 TO HOME OR SELFCARE Is pt being admited?: No Does the pt Need Aspirin: No Condition: Stable Additional Instructions: Continue Lasix, 40 mg each morning, and start Lasix, 20 mg, each night. Please make certain to not miss any of the prescribed doses. Recommend water and salt restriction, and please make certain to stick to a diabetic appropriate diet, and salt restricted diet, as previously discussed with the patient by her carpet winder, primary care doctor and inpatient team. Recommend patient follow-up in 2-3 days for repeat checkup/evaluation. Patient may present to this emergency room for repeat checkup/evaluation, follow-up with her primary care doctor, or go to an urgent care center. We contacted the patient's covering carpet winder, Dr. Temple, who advises that patient follow up closely next week. Recommend contacting her carpet winder first thing Friday morning, let the front office staff know that we have spoken to Dr. Temple, and that the patient should be accommodated with an outpatient appointment early next week as an overbook. Return to the emergency room right away with projectile vomiting, change in mental status, confusion, inability to tolerate liquid feeds, new, worsened or different symptoms not present on initial emergency room evaluation. Please make certain to adhere to a diabetic appropriate diet as patient was found to have high blood sugar. Long-term complications of high blood sugar included disability, stroke, loss of quality of life. Prescriptions: Furosemide [Lasix] 20 mg PO QHS #7 tablet Referrals: BNOI TEMPLE MD [Staff Physician] - 3-5 Days ANCELMO BLACKMAN MD [Staff Physician] - 3-5 Days
[2019-02-10 17:40] LABS: Alanine Aminotransferase 16 units/L (7-56); Albumin 3.1 g/dL (3.9-5); BUN/Creatinine Ratio 18; Blood Urea Nitrogen 21 mg/dL (7-17); Calcium 8.6 mg/dL (8.4-10.2); Hemolysis Index 9
[2019-02-10] MEDS ORDERED: FUROSEMIDE 40 MG/4 ML INJ IV ONE (17:49)
[2019-02-10] MEDS ORDERED: INSULIN REGULAR, HUMAN 100 UNITS/1 ML IV ONE (17:49)
[2019-02-10 19:28] VITALS: BP 170/91
== END 2019-02-10 19:45 | disposition home or self-care (01) ==
LOC: ED 15:41
DX: E11.65 Type 2 diabetes mellitus with hyperglycemia (principal); R06.02 Shortness of breath; R60.9 Edema, unspecified
CPT/HCPCS: 36415; 71046; 80053; 82550; 82962; 83735; 83880; 84484; 85025; 93005; 93010; 96374; 96375; 99284; J1940; J1815

== ENCOUNTER 2020-06-26 12:06 | Emergency (ER) | payer MEDICARE ==
--- NOTE | 2020-06-26 17:41 | Electrocardiograph Report ---
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
[2020-06-26 21:31] VITALS: BP 93/55
== END 2020-06-26 14:14 | disposition left against medical advice (07) ==
LOC: ED 12:06
DX: R06.02 Shortness of breath (principal); R42 Dizziness and giddiness; Z53.21 Procedure and treatment not carried out due to patient leaving prior to being seen by health care provider
CPT/HCPCS: 93005